=== PATIENT | male | born 1950 | race African-American/Black ===

== ENCOUNTER 2016-12-15 16:36 | Inpatient (IN) ==
--- NOTE | 2016-12-15 16:45 | Emergency Department Note ---
Disposition Clinical Impression: Blood loss anemia GI bleed Qualifiers: GI bleed type/associated pathology: unspecified gastrointestinal hemorrhage type Qualified Code(s): K92.2 - Gastrointestinal hemorrhage, unspecified Disposition: Admitted As Inpatient Condition: Fair GI Bleed HPI - General Chief complaint: ED GI Bleed Stated complaint: GI bleed Time Seen by Provider: 12/15/16 16:37 Source: EMS Limitations: no limitations Nursing Notes Reviewed: Yes Vital Signs Reviewed: Yes - History of Present Illness Pt Subjective Complaint: melena Onset (ago): month(s) (1) Consistency: intermittent, Worsening Severity: mild Improves with: nothing Worsens with: nothing Context: history of GI bleed Associated symptoms: Reports: none - Related Data Home Medications Medication Instructions Recorded Confirmed Albuterol Sulfate [Ventolin Hfa] 2 puff PO Q4H PRN 04/07/16 12/15/16 Amlodipine Besylate 7.5 mg PO DAILY 04/07/16 12/15/16 Budesonide/Formoterol 160/4.5 2 puff IH BIDR 04/07/16 12/15/16 [Symbicort 160/4.5] Divalproex (24 HR) [Depakote ER 1,500 mg PO HS 04/07/16 12/15/16 (24 HR)] Hydrochlorothiazide 25 mg PO DAILY 04/07/16 12/15/16 Prazosin HCl [Minipress] 2 mg PO HS 04/07/16 12/15/16 Ferrous Sulfate [Iron] 325 mg PO BID 08/25/16 12/15/16 Sildenafil Citrate [Viagra] 50 mg PO DAILY PRN 08/25/16 12/15/16 Cholecalciferol (D-3) [Vitamin D] 4,000 unit PO DAILY 12/15/16 12/15/16 DiphenhydraMINE [Benadryl] 50 mg PO HS PRN 12/15/16 12/15/16 Mirtazapine [Remeron] 30 mg PO HS 12/15/16 12/15/16 Multivitamin [Multi-Day Vitamins] 1 each PO DAILY 12/15/16 12/15/16 Sucralfate [Carafate] 1 gm PO QID 12/15/16 12/15/16 Triamcinolone Acet 0.1% CRM 1 appl TP BID PRN 12/15/16 12/15/16 [Kenalog] Previous Rx's Medication Instructions Recorded Pantoprazole Sodium [Protonix] 40 mg PO BID #60 granpkt. 06/29/16 Allergies Allergy/AdvReac Type Severity Reaction Status Date / Time acetaminophen [From Tylenol] Allergy Hives Verified 08/25/16 09:02 atenolol Allergy Gastrointestinal Verified 08/25/16 09:02 Upset bisacodyl Allergy Gastrointestinal Verified 08/25/16 09:02 Upset All systems ED: reviewed and negative except as stated. Constitutional: Reports: weakness. Denies: fever, chills Neurological: Reports: other (dizzy) Past Medical History - Past Medical History Source: patient, old records reviewed, nursing notes reviewed Medical history: Reports: arthritis, GERD, hypertension, other Surgical history: Reports: other Psychiatric history: Reports: depression - Social History Smoking Status: Current every day smoker Smokeless Tobacco Status: No Alcohol use: Reports: rarely Drug use: Reports: none Physical Exam - General Limitations: no limitations General appearance: alert - Head Head exam: atraumatic, normocephalic, normal inspection - Eye Eye exam: Present: normal appearance, PERRL, EOMI - Expanded Eye Exam Pupils: Left: reactive - ENT ENT exam: normal exam, normal oropharynx, mucous membranes moist - Expanded ENT Exam External ear exam: Present: normal external inspection Mouth exam: Present: normal external inspection Teeth exam: Present: normal inspection Throat exam: Present: normal inspection - Neck Neck exam: Present: normal inspection, full ROM, trachea midline - Chest Chest inspection: Present: normal inspection, symmetric chest wall rise - Respiratory Respiratory exam: Present: normal lung sounds bilaterally - Cardiovascular Cardiovascular exam: Present: regular rate, normal rhythm, normal heart sounds - Abdominal Exam Abdominal exam: Present: soft, Non-Tender. Absent: tenderness, distention, guarding, rebound, rigidity - Rectal Exam Geospatial Extractor Analysis present during exam: Yes Rectal exam: Present: normal inspection, heme (+) stool - Extremities Exam Extremities exam: Present: normal inspection, full ROM. Absent: tenderness, pedal edema - Expanded Upper Extremity Exam Shoulder exam: Present: normal inspection, full ROM Arm exam: Present: normal inspection, full ROM Elbow exam: Present: normal inspection, full ROM Forearm/Wrist exam: Present: normal inspection, full ROM Hand exam: Present: normal inspection, full ROM Vascular exam: Normal: capillary refill, radial pulse - Expanded Lower Extremity Exam Hip/Pelvis exam: Present: normal inspection, full ROM Upper leg exam: Present: normal inspection, full ROM Knee exam: Present: normal inspection, full ROM Lower leg exam: Present: normal inspection, full ROM Ankle exam: Present: normal inspection, full ROM Foot/toe exam: Present: normal inspection, full ROM Neurovascular/Tendon exam: Absent: motor deficit, sensory deficit, tendon deficit - Back Exam Back exam: Present: normal inspection, full ROM. Absent: tenderness - Neurological Exam Neurological exam: Present: alert, oriented X3 - Expanded Neurological Exam Patient oriented to: Present: person, place, time Coma Scale Eye Opening: Spontaneous Coma Scale Motor Response: Obeys Commands Coma Scale Verbal Response: Oriented Coma Scale Total: 15 - Psychiatric Psychiatric exam: Present: normal affect, normal mood - Skin Skin exam: Present: warm, dry, intact, normal color Course Vital Signs Temperature 98.3 F 12/15/16 16:37 Pulse Rate 73 12/15/16 16:37 Respiratory Rate 18 12/15/16 16:37 Blood Pressure 157/80 12/15/16 16:37 O2 Sat by Pulse Oximetry 100 12/15/16 16:37 Temperature 98.3 F 12/15/16 16:37 Pulse Rate 73 12/15/16 19:05 Respiratory Rate 18 12/15/16 19:46 Blood Pressure 165/72 12/15/16 19:46 O2 Sat by Pulse Oximetry 97 12/15/16 19:05 Oxygen Delivery Oxygen Delivery Room Air GI Bleed - Differential Diagnosis Likely: hemorrhoids, infectious diarrhea, esophageal varices, gastritis, Upper gastrointestinal hemorrhage, Lower gastrointestinal hemorrhage, melena, anal fissure - Medical Records Medical records reviewed: Yes I reviewed the patient's medical records. - Lab Data Lab results reviewed: Yes I reviewed the patient's lab results. Result diagrams: 12/15/16 17:29 12/15/16 17:29 Lab Results 12/15/16 12/15/16 12/15/16 Range/Units 14:30 17:29 17:29 WBC 7.1 (4.3-11.1) K/mcL RBC 2.71 L (4.19-5.50) M/mcL Hgb 8.5 L (12.9-16.9) g/dL Hct 26.4 L (37.5-50.1) % MCV 97.4 (83.0-100.0) fL MCH 31.4 (28.0-33.3) pg MCHC 32.2 (31.6-35.5) g/dL RDW 15.7 H (11.5-14.5) % Plt Count 426 H (140-400) K/mcL MPV 10.5 (9.4-12.4) fL Immature Gran % 0.6 (0-4) % Seg Neutrophils % 54.5 % Lymphocytes % 31.0 % Monocytes % 11.5 % Eosinophils % 1.8 % Basophils % 0.6 % Neutrophils # 3.9 (1.6-8.9) K/mcL Lymphocytes # 2.2 (0.6-4.6) K/mcL Monocytes # 0.8 (0.0-1.3) K/mcL Eosinophils # 0.1 (0.0-0.6) K/mcL Basophils # 0.0 (0.0-0.2) K/mcL PT 12.2 H (9.4-12.1) Seconds INR 1.1 APTT 28.3 (26.0-36.0) Seconds Sodium (136-145) mEq/L Potassium (3.5-4.5) mEq/L Chloride (98-109) mEq/L Carbon Dioxide (19-29) mEq/L BUN (8-26) mg/dL Creatinine (0.72-1.25) mg/dL Est GFR ( Amer) (> 60) Est GFR (Non-Af Amer) (> 60) BUN/Creatinine Ratio (6-26) Glucose (70-99) mg/dL Calculated Osmolality (280-300) Calcium (8.6-10.8) mg/dL Magnesium (1.6-2.6) mg/dL Stool Occult Blood Positive A (Negative) Blood Type Antibody Screen 12/15/16 12/15/16 Range/Units 17:29 17:29 WBC (4.3-11.1) K/mcL RBC (4.19-5.50) M/mcL Hgb (12.9-16.9) g/dL Hct (37.5-50.1) % MCV (83.0-100.0) fL MCH (28.0-33.3) pg MCHC (31.6-35.5) g/dL RDW (11.5-14.5) % Plt Count (140-400) K/mcL MPV (9.4-12.4) fL Immature Gran % (0-4) % Seg Neutrophils % % Lymphocytes % % Monocytes % % Eosinophils % % Basophils % % Neutrophils # (1.6-8.9) K/mcL Lymphocytes # (0.6-4.6) K/mcL Monocytes # (0.0-1.3) K/mcL Eosinophils # (0.0-0.6) K/mcL Basophils # (0.0-0.2) K/mcL PT (9.4-12.1) Seconds INR APTT (26.0-36.0) Seconds Sodium 141 (136-145) mEq/L Potassium 3.9 (3.5-4.5) mEq/L Chloride 111 H (98-109) mEq/L Carbon Dioxide 20 (19-29) mEq/L BUN 20 (8-26) mg/dL Creatinine 1.16 (0.72-1.25) mg/dL Est GFR ( Amer) > 60 (> 60) Est GFR (Non-Af Amer) > 60 (> 60) BUN/Creatinine Ratio 17 (6-26) Glucose 98 (70-99) mg/dL Calculated Osmolality 295 (280-300) Calcium 9.1 (8.6-10.8) mg/dL Magnesium 1.8 (1.6-2.6) mg/dL Stool Occult Blood (Negative) Blood Type O POSITIVE Antibody Screen POSITIVE - Radiology Data Radiology results reviewed: Yes I reviewed the patient's radiology results.
[2016-12-15] MEDS ORDERED: 0.9 % Sodium Chloride 1,000 ML IVC ONE (17:07)
[2016-12-15 17:41] LABS: Basophils % 0.6 %; Eosinophils # 0.1 K/mcL (0.0-0.6); Eosinophils % 1.8 %; Hematocrit 26.4 % (37.5-50.1); Hemoglobin 8.5 g/dL (12.9-16.9); Immature Granulocytes % 0.6 % (0-4); Lymphocytes # 2.2 K/mcL (0.6-4.6); Mean Corpuscular HGB Conc 32.2 g/dL (31.6-35.5); Mean Corpuscular Hemoglobin 31.4 pg (28.0-33.3); Mean Corpuscular Volume 97.4 fL (83.0-100.0); Mean Platelet Volume 10.5 fL (9.4-12.4); Monocytes # 0.8 K/mcL (0.0-1.3); Monocytes % 11.5 %; Neutrophils # 3.9 K/mcL (1.6-8.9); Platelet Count 426 K/mcL (140-400); Red Blood Count 2.71 M/mcL (4.19-5.50); Red Cell Distribution Width 15.7 % (11.5-14.5); Segmented Neutrophils % 54.5 %
[2016-12-15 17:47] LABS: INR 1.1; Prothrombin Time 12.2 Seconds (9.4-12.1)
[2016-12-15 17:49] LABS: Activated Partial Thrombo Time 28.3 Seconds (26.0-36.0)
[2016-12-15 17:55] LABS: BUN/Creatinine Ratio 17 (6-26); Blood Urea Nitrogen 20 mg/dL (8-26); Calcium 9.1 mg/dL (8.6-10.8); Carbon Dioxide 20 mEq/L (19-29); Chloride 111 mEq/L (98-109); Glucose 98 mg/dL (70-99); Magnesium 1.8 mg/dL (1.6-2.6); Osmolality,Calculated 295 (280-300); Potassium 3.9 mEq/L (3.5-4.5); Sodium 141 mEq/L (136-145); eGFR For African Americans > 60 (> 60); eGFR For Non-African Americans > 60 (> 60)
[2016-12-15] MEDS ORDERED: Pantoprazole 40 MG VIAL IVP ONE (18:19)
[2016-12-15] MEDS ORDERED: Triamcinolone Acet 0.1% CRM 15 GM TUBE TP PRN (22:14)
[2016-12-15] MEDS ORDERED: Naloxone 0.4 MG/ML INJ IVP PRN (22:18)
[2016-12-15] MEDS ORDERED: Furosemide 20 MG/2 ML VIAL IVP ONE (22:23)
--- NOTE | 2016-12-15 22:36 | Internal Med History&Physical ---
Date of Encounter: 12/15/16 Time of Encounter: 21:40 Assessment and Plan (1) Blood loss anemia Current visit: Yes Status: Acute Possibly secondary to GI / upper GI source of bleeding. Patient is significantly symptomatic with shortness of breath and dizziness. We will transfuse him 2 units of PRBC. Monitor orthostatic vitals and hemoglobin. GI consultation in the morning for further advice and workup (2) GI bleed Current visit: Yes Status: Acute Possible upper GI bleeding. Start pantoprazole 40 IV Q12H. NPO after midninight for possible endoscopy. GI consultation in the morning. Qualifiers: GI bleed type/associated pathology: melena Qualified Code(s): K92.1 - Melena (3) Hypertension Current visit: Yes Status: Chronic Monitor orthostatic vitals. Continue amlodipine. Qualifiers: Hypertension type: essential hypertension Qualified Code(s): I10 - Essential (primary) hypertension (4) Lung nodule Current visit: Yes Status: Chronic Stable. Follows with embedded developer (5) Shortness of breath on exertion Current visit: Yes Status: Acute Possibly due to Anemia / GI blood loss. Will transfuse 2 units of PRBC. Will obtain CXR (6) COPD (chronic obstructive pulmonary disease) Current visit: Yes Status: Chronic stable. continue home meds Qualifiers: COPD type: unspecified COPD Qualified Code(s): J44.9 - Chronic obstructive pulmonary disease, unspecified (7) Tobacco abuse Current visit: Yes Status: Chronic Patient admits to smoking 5 cigarettes a day. Offered nicotine patch - pt declined (8) DVT prophylaxis Current visit: Yes Status: Acute SCDs Internal Medicine - H&P: HPI Chief complaint: Melena Admitted From: Emergency Dept Plans for Post Hospital Care: Home History of present illness: Mr. Hartley is a 66 year old male with past medical history significant for GI bleed with a negative colonoscopy in June 2016 and EGD showing inflammation of the duodenal bulb. He apparently had capsule endoscopy about 2 months ago in the [place] (requested report from [place], and is not available at this time). He has history of right lower lobe pulmonary nodule and right hilar adenopathy which was worked up by embedded developer and is being monitored. He also has history of COPD, GERD, hypertension, depression, thyroid nodules and PTSD. He presented to the urgent care at the [place], with one-month history of black stools, and recently noticed blood in the bowel movement. He denies hematemesis. He reports progressive dyspnea on exertion and decreased effort tolerance. He reports feeling dizzy this morning, when he was trying to stand up. Denies syncope/falls. He reports fatigue and excessive sleeping. Denies chest pain. Reports mild left-sided abdominal pain. Denies dysuria, hematuria, hemoptysis or excessive bruising. He denies fever, chills, nausea, vomiting. He was evaluated in urgent care at [place] - I have reviewed her available lab results from the [place]. His Hemoglobin was 13.4 on 11/23/2016 and was 8.8 today. He was sent to the emergency department at [facility]. Hemoglobin was 8.5 and INR was 1.1. Fecal occult blood was positive. He is admitted to the hospitalist service for further workup and management. Past Med Surg Social Fam HX - Past Medical History Medical history: arthritis, GERD, hypertension, other Psychiatric history: depression - Past Surgical History Surgical History: other - Social History Smoking Status: Current every day smoker Packs per day: 1 per week Smokeless Tobacco Status: No Alcohol use: rarely Drug use: none - Family History Sister Adopted: No Living Status: Still Living Internal Medicine - H&P: Meds Albuterol Sulfate [Ventolin Hfa] 2 puff PO Q4H PRN 04/07/16 [History] Amlodipine Besylate 7.5 mg PO DAILY 04/07/16 [History] Budesonide/Formoterol 160/4.5 [Symbicort 160/4.5] 2 puff IH BIDR 04/07/16 [ History] Divalproex (24 HR) [Depakote ER (24 HR)] 1,500 mg PO HS 04/07/16 [History] Hydrochlorothiazide 25 mg PO DAILY 04/07/16 [History] Prazosin HCl [Minipress] 2 mg PO HS 04/07/16 [History] Pantoprazole Sodium [Protonix] 40 mg PO BID #60 morenapkt 06/29/16 [Rx] Ferrous Sulfate [Iron] 325 mg PO BID 08/25/16 [History] Sildenafil Citrate [Viagra] 50 mg PO DAILY PRN 08/25/16 [History] Cholecalciferol (D-3) [Vitamin D] 4,000 unit PO DAILY 12/15/16 [History] DiphenhydraMINE [Benadryl] 50 mg PO HS PRN 12/15/16 [History] Mirtazapine [Remeron] 30 mg PO HS 12/15/16 [History] Multivitamin [Multi-Day Vitamins] 1 each PO DAILY 12/15/16 [History] Sucralfate [Carafate] 1 gm PO QID 12/15/16 [History] Triamcinolone Acet 0.1% CRM [Kenalog] 1 appl TP BID PRN 12/15/16 [History] Allergies acetaminophen [From Tylenol] Allergy (Verified 08/25/16 09:02) Hives atenolol Allergy (Verified 08/25/16 09:02) Gastrointestinal Upset bisacodyl Allergy (Verified 08/25/16 09:02) Gastrointestinal Upset All Systems PM: A 10-system review of systems was performed and is negative for pertinent findings except as documented above in the HPI. - Constitutional Vitals: Temp Pulse Resp BP Pulse Ox 98.6 F 72 20 144/82 100 12/15/16 20:33 12/15/16 20:33 12/15/16 20:33 12/15/16 20:33 12/15/16 20:33 Exam: General: Not in acute distress at the time of my evaluation HEENT: Oral mucosa is moist. conjunctival palor present. No scleral icterus Neck: No obvious neck swellings Lungs: Few bilateral basal crackles Cardiac: Regular rate and rhythm. Systolic murmur present Abdomen: Soft. Mild left upper quadrant tenderness. Bowel sounds present Genitourinary: No jarquin catheter Neurological: Alert and oriented. No gross localizing deficits Psych: Not aggressive or agitated Extremities: no significant leg edema Skin: No generalized rash Internal Med - H&P Results - Labs CBC & Chem 7: 12/15/16 17:29 12/15/16 17:29 - EKG Data -: EKG Interpreted by Myself EKG shows normal: sinus rhythm Rate: normal - EKG Data EKG comments: HUNG 12/15/16 22:38
[2016-12-15] MEDS: Divalproex (24 HR) 500 MG TABLET PO SCH (23:07)
[2016-12-15] MEDS: Pantoprazole 40 MG VIAL IVP SCH (23:08)
[2016-12-15] MEDS: Mirtazapine 15 MG TABLET PO SCH (23:33)
[2016-12-16] MEDS ORDERED: 0.9 % Sodium Chloride Mini Bag 100 ML ONE (00:28)
[2016-12-16] MEDS: Pantoprazole 40 MG VIAL IVP SCH ×2 (05:48→18:19)
[2016-12-16 06:10] LABS: Hematocrit 26.8 % (37.5-50.1); Hemoglobin 8.8 g/dL (12.9-16.9); Mean Corpuscular HGB Conc 32.8 g/dL (31.6-35.5); Mean Corpuscular Hemoglobin 31.4 pg (28.0-33.3); Mean Corpuscular Volume 95.7 fL (83.0-100.0); Mean Platelet Volume 10.8 fL (9.4-12.4); Platelet Count 389 K/mcL (140-400); Red Cell Distribution Width 15.2 % (11.5-14.5)
[2016-12-16 06:20] LABS: % Iron Saturation 7 % (20-55); BUN/Creatinine Ratio 14 (6-26); Blood Urea Nitrogen 16 mg/dL (8-26); Calcium 8.7 mg/dL (8.6-10.8); Carbon Dioxide 23 mEq/L (19-29); Chloride 112 mEq/L (98-109); Glucose 122 mg/dL (70-99); Iron 27 mcg/dL (65-175); Osmolality,Calculated 296 (280-300); Potassium 3.8 mEq/L (3.5-4.5); Sodium 142 mEq/L (136-145); Transferrin 261 mg/dL (174-364); eGFR For African Americans > 60 (> 60); eGFR For Non-African Americans > 60 (> 60)
[2016-12-16] MEDS: Budesonide/Formoterol 160/4.5 MDI IH SCH ×2 (07:42→21:12)
[2016-12-16] MEDS: amLODIPine 5 MG TABLET PO SCH (09:49)
[2016-12-16] MEDS: Multivit/Ca/Min/Fe/FA 1 TAB TABLET PO SCH (09:49)
[2016-12-16] MEDS: Sucralfate 1 GM TABLET PO SCH ×4 (09:51→20:48)
[2016-12-16] MEDS: Cholecalciferol (D-3) 1,000 UNIT TABLET PO SCH (09:54)
--- NOTE | 2016-12-16 11:00 | Internal Med Progress Note ---
Date of Encounter: 12/16/16 Time of Encounter: 10:58 - Assessment and plan (1) Blood loss anemia Current Visit: Yes Status: Acute Assessment and plan: patient received 1unit PRBC overnight. he is to receive one unit today will monitor H&H no reported BM or bleeds since admission will continue to closely monitor (2) GI bleed Current Visit: Yes Status: Acute Assessment and plan: GI eval requested with Dr. Brando Michaels to take the patient for EGD today continue PPI BID NPO until after EGD and will resume diet as per GI eval Qualifiers: GI bleed type/associated pathology: melena Qualified Code(s): K92.1 - Melena (3) DVT prophylaxis Current Visit: Yes Status: Acute Assessment and plan: IPCD (4) COPD (chronic obstructive pulmonary disease) Current Visit: Yes Status: Chronic Assessment and plan: not in acute exacerbation bronchodilator support as needed monitor O2 sat O2 supplementation as needed Qualifiers: COPD type: unspecified COPD Qualified Code(s): J44.9 - Chronic obstructive pulmonary disease, unspecified (5) Hypertension Current Visit: Yes Status: Chronic Assessment and plan: BP within acceptable range continue home medications Qualifiers: Hypertension type: essential hypertension Qualified Code(s): I10 - Essential (primary) hypertension (6) Tobacco abuse Current Visit: Yes Status: Chronic Assessment and plan: smoking cessation counseling provided patient reports of trying to cut down refused nicotine replacement therapy - Subjective Interval history: Pt seen and examined at bedside. Reports of have GI bleeds/melena for the last year and has had multiple hospitalizations for it. States he feels weak and tired at all times. REports of recently having a capsule endoscopy at the [place] and has been lost in follow up. - Constitutional Vitals: Temp Pulse Resp BP Pulse Ox 98.6 F 81 16 130/65 98 12/16/16 07:00 12/16/16 07:00 12/16/16 07:00 12/16/16 07:00 12/16/16 07:00 General appearance: Present: A&O X 3, no acute distress, answers questions appropriately - Head Head exam: Present: atraumatic, normocephalic - Eye Eye exam: Present: normal appearance, conjuntiva pink, sclera anicteric - Respiratory Respiratory exam: Present: CTAB. Absent: respiratory distress, wheezes - Cardiovascular Cardiovascular exam: Present: RRR, +S1, +S2 - Extremities Exam Extremities exam: Present: warm, radial pulses palpable and symetrical. Absent : calf tenderness, pedal edema - Neurological Exam Neurological exam: Present: alert, oriented X3 - Psychiatric Psychiatric exam: Present: normal affect, normal mood Internal Medicine: Result - Labs CBC & Chem 7: 12/16/16 05:14 12/16/16 05:14 Labs: Short CBC 12/16/16 Range/Units 05:14 WBC 5.2 (4.3-11.1) K/mcL Hgb 8.8 L (12.9-16.9) g/dL Hct 26.8 L (37.5-50.1) % Plt Count 389 (140-400) K/mcL BMP 12/16/16 05:14 Sodium 142 Potassium 3.8 Chloride 112 H Carbon Dioxide 23 BUN 16 Creatinine 1.17 Glucose 122 H Calcium 8.7 - ABG Interpretation ABG results: PT/INR, D-dimer PT 12.2 Seconds (9.4-12.1) H 12/15/16 17:29 Consult Discharge Plan - Plan Referrals: [facility] [Outside]
[2016-12-16] MEDS ORDERED: 0.9 % Sodium Chloride 250 ML ONE (11:47)
--- NOTE | 2016-12-16 13:02 | Gastroenterology Consult Note ---
<Henry Sal - Last Filed: 12/16/16 13:00> Date of Encounter: 12/16/16 Time of Encounter: 11:00 - Assessment and plan (1) GI bleed Current Visit: Yes Status: Acute Assessment and plan: Pt with melena for over 1 year. Plan for EGD today to r/o esophagitis, gastritis , duodenitis, PUD, MW tear, or AVM. Pt states he had a capsule endoscopy at [place], but has been lost to follow up. Qualifiers: GI bleed type/associated pathology: melena Qualified Code(s): K92.1 - Melena (2) Blood loss anemia Current Visit: Yes Status: Acute Assessment and plan: Secondary to GI bleed. Continue to monitor CBC and transfuse PRBC as needed. (3) COPD (chronic obstructive pulmonary disease) Current Visit: Yes Status: Chronic Qualifiers: COPD type: unspecified COPD Qualified Code(s): J44.9 - Chronic obstructive pulmonary disease, unspecified - Time Spent With Patient Total time spent is greater than 50% in coordination of care (as documented) at patient's floor/unit and/or counseling patient: GI History of Present Illness - Data of Consult Patient: new to practice Consult date: 12/16/16 Requesting Physician: Nidia Hartmann MD - Consult Narrative Reason for consult: anemia History of present illness: Mr. Hartley is a 66 year old male with PMHx of arthritis, COPD, PTSD, GERD, HTN, and history of GI bleed with negative colonoscopy June 2016 and EGD with inflammation of duodenal bulb. Pt reports capsule endoscopy 2 months ago at the [place]. He states there has been no follow up with the [place] from his GI bleed. He complains of bleeding for the past 18 months, but states his melena has worsened has worsened over the past month. He also reports ocassional BRBPR, weakness, and fatigue. He denies chest pain, fever, chills, nausea, or vomiting. Hgb 13.4 on 11/23/16 and 8.8 this AM. FOBT positive on admission. Procedures: 06/2016 EGD inflammation of duodenal bulb 06/2016 Colonoscopy negative per pt report. Capsule endoscopy 2 months ago NSAIDs: None Anticoagulation: None Past Med Surg Social Fam HX - Past Medical History Medical history: arthritis, GERD, hypertension, other Psychiatric history: depression - Past Surgical History Surgical History: other - Social History Smoking Status: Current every day smoker Packs per day: 1 per week Smokeless Tobacco Status: No Alcohol use: rarely Drug use: none - Family History Sister Adopted: No Living Status: Still Living - Gastrointestinal Gastrointestinal: Present: as per HPI - Constitutional Constitutional: as per HPI - EENT Eyes: as per HPI Ears: Present: as per HPI Nose, mouth and throat: Present: as per HPI - Cardiovascular Cardiovascular ROS: Present: as per HPI - Respiratory Respiratory IM: Present: as per HPI - Genitourinary Genitourinary: Absent: change in color, Urinary frequency - Neurological ROS Neurological GI: Present: as per HPI - Hematologic/Lymphatic Hematologic/Lymphatic pediatric: Present: as per HPI - Musculoskeletal Musculoskeletal ROS GI: Present: as per HPI - Integumentary Integumentary GI: Present: as per HPI - Psychiatric ROS Psychiatric GI: Present: as per HPI - Endocrine Endocrine IM: Present: as per HPI - Constitutional Vitals: Temp Pulse Resp BP Pulse Ox 98.1 F 96 17 135/81 98 12/16/16 12:23 12/16/16 12:23 12/16/16 12:23 12/16/16 12:23 12/16/16 12:08 General appearance: Present: cooperative, A&O X 3, no acute distress, answers questions appropriately - Head Head exam: Present: atraumatic, normocephalic - Eye Eye exam: Present: normal appearance, sclera anicteric - ENT ENT exam: Present: mucous membranes dry - Neck Neck exam general surgery: Present: normal inspection, trachea midline - Respiratory Respiratory exam: Present: decreased breath sounds, CTAB - Cardiovascular Cardiovascular exam: Present: RRR, +S1, +S2 - GI/Abdominal GI/Abdominal exam: Present: soft, tenderness (Mild lower abdominal tenderness to palpation), no peritoneal signs. Absent: distended, firm, guarding - Rectal Rectal exam: Present: deferred - Extremities Exam Extremities exam: Present: warm - Neurological Exam Neurological exam: Present: no focal deficits - Psychiatric Psychiatric exam: Present: normal affect, normal mood - Skin Skin exam: Present: dry, intact, normal color, warm Results - Labs CBC & Chem 7: 12/16/16 05:14 12/16/16 05:14 Labs: Last Result Calcium 8.7 mg/dL (8.6-10.8) 12/16/16 05:14 Iron 27 mcg/dL (65-175) L 12/16/16 05:14 % Saturation 7 % (20-55) L 12/16/16 05:14 Transferrin 261 mg/dL (174-364) 12/16/16 05:14 Stool Occult Blood Positive (Negative) A 12/15/16 14:30 Entire Visit Hgb 8.8 g/dL (12.9-16.9) L 12/16/16 05:14 Hct 26.8 % (37.5-50.1) L 12/16/16 05:14 PT 12.2 Seconds (9.4-12.1) H 12/15/16 17:29 - ABG ABG results: PT/INR, D-dimer PT 12.2 Seconds (9.4-12.1) H 12/15/16 17:29 Consult Discharge Plan - Plan Referrals: [facility] [Outside] <Maximo Michaels - Last Filed: 12/16/16 18:27> Time of Encounter: 18:00 - Time Spent With Patient Total time spent is greater than 50% in coordination of care (as documented) at patient's floor/unit and/or counseling patient: GI History of Present Illness - Data of Consult Requesting Physician: Nidia Hartmann MD - Consult Narrative History of present illness: Mr. Hartley is a 66 year old male - Constitutional Vitals: Temp Pulse Resp BP Pulse Ox 98.3 F 71 16 183/67 99 12/16/16 16:59 12/16/16 17:48 12/16/16 17:48 12/16/16 17:48 12/16/16 17:48 Results - Labs CBC & Chem 7: 12/16/16 05:14 12/16/16 05:14 Labs: Last Result Calcium 8.7 mg/dL (8.6-10.8) 12/16/16 05:14 Iron 27 mcg/dL (65-175) L 12/16/16 05:14 % Saturation 7 % (20-55) L 12/16/16 05:14 Transferrin 261 mg/dL (174-364) 12/16/16 05:14 Stool Occult Blood Positive (Negative) A 12/15/16 14:30 Entire Visit Hgb 8.8 g/dL (12.9-16.9) L 12/16/16 05:14 Hct 26.8 % (37.5-50.1) L 12/16/16 05:14 PT 12.2 Seconds (9.4-12.1) H 12/15/16 17:29 - ABG ABG results: PT/INR, D-dimer PT 12.2 Seconds (9.4-12.1) H 12/15/16 17:29
--- NOTE | 2016-12-16 14:55 | Electrocardiograph Report ---
[place] [id number] Test Date: 2016-12-15 Pat Name: Hayder Hartley Department: 115 Room: 3A Gender: M Ac/Dc Rewinder: : 1950 Requested By: Nidia Hartmann Order Number: [id number] Reading MD: Cat Pablo Measurements Intervals [place] Rate: 74 P: 53 NV: 123 QRS: 60 QRSD: 133 T: 56 QT: 405 QTc: 432 Interpretive Statements SINUS RHYTHM WITH SINUS ARRHYTHMIA RIGHT BUNDLE BRANCH BLOCK Electronically Signed On 12-16-2016 14:53:54 EST by Cat Pablo
[2016-12-16] MEDS ORDERED: *HR* FentaNYL (PF) 100 MCG/2 ML VIAL ONE ×2 (16:49→17:38)
[2016-12-16] MEDS ORDERED: *HR* Midazolam HCl 5 MG/5 ML VIAL IVP ONE ×2 (16:50→17:37)
[2016-12-16] MEDS ORDERED: 0.9 % Sodium Chloride 1,000 ML IVC SCH (17:15)
[2016-12-16] MEDS ORDERED: Tetracaine/Benzocaine/Butamben 200MG/SPRAY (100SPY/BOT) MM ONE (17:26)
[2016-12-16] MEDS ORDERED: Simethicone 40 MG/0.6 ML MLS IR ONE (17:26)
--- NOTE | 2016-12-16 17:26 | Pre-Sedation Evaluation ---
Pre-sedation evaluation - Pre-sedation checklist Date of procedure: 12/16/16 Procedure: EGD Recent Vitals: Last Vital Signs Temp 98.3 F 12/16/16 16:59 Pulse 67 12/16/16 16:59 Resp 16 12/16/16 16:59 BP 130/72 12/16/16 16:59 Pulse Ox 97 12/16/16 16:59 H&P (including ROS) documented in medical record: Yes Previous reaction to sedatives/anesthetics: No Dietary Status: NPO after Midnight Dentition: dentures removed ASA Classification *see protocol: CLASS III-Severe systemic disease Plan of Care: Pt appropriate candidate for procedure/moderate/conscious sedation , Risks/benefits of procedure/sedation discussed w/ patient/family
[2016-12-16] MEDS: *HR* Midazolam HCl 5 MG/5 ML VIAL IVP PRN ×4 (17:28→17:44)
[2016-12-16] MEDS: *HR* FentaNYL (PF) 100 MCG/2 ML VIAL IVP PRN ×3 (17:28→17:44)
[2016-12-16] MEDS: Mirtazapine 15 MG TABLET PO SCH (20:48)
[2016-12-16] MEDS: Divalproex (24 HR) 500 MG TABLET PO SCH (20:49)
[2016-12-17] MEDS: traMADol 50 MG TABLET PO PRN ×2 (00:50→18:25)
[2016-12-17 04:42] LABS: Basophils % 0.4 %; Eosinophils # 0.2 K/mcL (0.0-0.6); Eosinophils % 3.7 %; Hematocrit 27.7 % (37.5-50.1); Hemoglobin 9.1 g/dL (12.9-16.9); Immature Granulocytes % 0.4 % (0-4); Lymphocytes # 1.5 K/mcL (0.6-4.6); Lymphocytes % 29.3 %; Mean Corpuscular HGB Conc 32.9 g/dL (31.6-35.5); Mean Corpuscular Hemoglobin 31.1 pg (28.0-33.3); Mean Corpuscular Volume 94.5 fL (83.0-100.0); Mean Platelet Volume 10.5 fL (9.4-12.4); Monocytes # 0.6 K/mcL (0.0-1.3); Monocytes % 12.5 %; Neutrophils # 2.8 K/mcL (1.6-8.9); Platelet Count 357 K/mcL (140-400); Red Blood Count 2.93 M/mcL (4.19-5.50); Segmented Neutrophils % 53.7 %
[2016-12-17 04:53] LABS: BUN/Creatinine Ratio 13 (6-26); Blood Urea Nitrogen 13 mg/dL (8-26); Calcium 8.9 mg/dL (8.6-10.8); Carbon Dioxide 22 mEq/L (19-29); Chloride 112 mEq/L (98-109); Glucose 135 mg/dL (70-99); Magnesium 1.5 mg/dL (1.6-2.6); Osmolality,Calculated 296 (280-300); Phosphorous 4.3 mg/dL (2.3-4.7); Potassium 3.7 mEq/L (3.5-4.5); Sodium 142 mEq/L (136-145); eGFR For African Americans > 60 (> 60); eGFR For Non-African Americans > 60 (> 60)
[2016-12-17] MEDS: Pantoprazole 40 MG VIAL IVP SCH ×2 (06:19→18:00)
[2016-12-17] MEDS ORDERED: Magnesium Sulfate 1 GM in D5% in Water 100 ML IVPB ONE (08:15)
[2016-12-17] MEDS: Budesonide/Formoterol 160/4.5 MDI IH SCH ×2 (08:22→20:18)
[2016-12-17] MEDS: amLODIPine 5 MG TABLET PO SCH (09:30)
[2016-12-17] MEDS: Sucralfate 1 GM TABLET PO SCH ×4 (09:30→21:23)
[2016-12-17] MEDS: Cholecalciferol (D-3) 1,000 UNIT TABLET PO SCH (09:31)
[2016-12-17] MEDS: Multivit/Ca/Min/Fe/FA 1 TAB TABLET PO SCH (09:31)
--- NOTE | 2016-12-17 12:14 | Internal Med Progress Note ---
Date of Encounter: 12/17/16 Time of Encounter: 12:13 - Assessment and plan (1) Blood loss anemia Current Visit: Yes Status: Acute Assessment and plan: Repeat H&H within acceptable range No active bleeding noted at this time Will continue to monitor (2) GI bleed Current Visit: Yes Status: Acute Assessment and plan: GI eval requested with Dr. Michaels s/p EGD: nonbleeding duodenal ulcer restarted PO diet will monitor another day likely d/c in am Qualifiers: GI bleed type/associated pathology: melena Qualified Code(s): K92.1 - Melena (3) DVT prophylaxis Current Visit: Yes Status: Acute Assessment and plan: IPCD (4) COPD (chronic obstructive pulmonary disease) Current Visit: Yes Status: Chronic Assessment and plan: not in acute exacerbation bronchodilator support as needed monitor O2 sat O2 supplementation as needed Qualifiers: COPD type: unspecified COPD Qualified Code(s): J44.9 - Chronic obstructive pulmonary disease, unspecified (5) Hypertension Current Visit: Yes Status: Chronic Assessment and plan: BP within acceptable range continue home medications Qualifiers: Hypertension type: essential hypertension Qualified Code(s): I10 - Essential (primary) hypertension (6) Tobacco abuse Current Visit: Yes Status: Chronic Assessment and plan: smoking cessation counseling provided patient reports of trying to cut down refused nicotine replacement therapy (7) Depression Current Visit: Yes Status: Acute Assessment and plan: chronic history Psych eval requested Qualifiers: Depression Type: unspecified Qualified Code(s): F32.9 - Major depressive disorder, single episode, unspecified - Subjective Interval history: Pt seen and examined at bedside. s/p EGD yesterday (12/16/16). NO reported episodes of bleeding since then. Reports of being depressed and states he feels hopeless and is chronically depressed. States he used to have a psychiatrist and has been lost in follow up. - Constitutional Vitals: Temp Pulse Resp BP Pulse Ox 98.5 F 74 16 149/78 96 12/17/16 11:32 12/17/16 11:32 12/17/16 11:51 12/17/16 11:32 12/17/16 11:51 General appearance: Present: A&O X 3, no acute distress, answers questions appropriately - Head Head exam: Present: atraumatic, normocephalic - Eye Eye exam: Present: normal appearance, conjuntiva pink, sclera anicteric - Respiratory Respiratory exam: Present: CTAB. Absent: respiratory distress, wheezes - Cardiovascular Cardiovascular exam: Present: RRR, +S1, +S2 - GI/Abdominal GI/Abdominal exam: Present: normal bowel sounds, soft. Absent: distended, tenderness - Extremities Exam Extremities exam: Present: warm, radial pulses palpable and symetrical. Absent : calf tenderness, pedal edema, tenderness - Neurological Exam Neurological exam: Present: alert, oriented X3 - Psychiatric Psychiatric exam: Present: depressed. Absent: suicidal ideation Internal Medicine: Result - Labs CBC & Chem 7: 12/17/16 04:22 12/17/16 04:22 Labs: Short CBC 12/17/16 Range/Units 04:22 WBC 5.1 (4.3-11.1) K/mcL Hgb 9.1 L (12.9-16.9) g/dL Hct 27.7 L (37.5-50.1) % Plt Count 357 (140-400) K/mcL Neutrophils # 2.8 (1.6-8.9) K/mcL BMP 12/17/16 04:22 Sodium 142 Potassium 3.7 Chloride 112 H Carbon Dioxide 22 BUN 13 Creatinine 1.00 Glucose 135 H Calcium 8.9 - ABG Interpretation ABG results: PT/INR, D-dimer PT 12.2 Seconds (9.4-12.1) H 12/15/16 17:29 - VTE Documentation of Mechanical Device: Intermittent pneumatic compression device Consult Discharge Plan - Plan Referrals: [facility] [Outside] - 12/31/16 2:30 pm (First appt. available at the [place] for the hospital follow up.)
--- NOTE | 2016-12-17 15:23 | Consult Note ---
Date of Encounter: 12/17/16 Time of Encounter: 14:30 Assessment & Recommendation (1) Major depression, recurrent, chronic Current visit: Yes Status: Acute Assessment & Recommendation: Recommend that patient continue on his psychiatric care at the [facility] with his psychiatrist and psychologist recommended that he make appointments and continue on his medication as prescribed. Patient is not acutely suicidal and psychiatric care can be accomplished as outpatient as discussed with the patient. Thank you for consult (2) Cocaine abuse in remission Current visit: No Status: Resolved History of Present Illness Patient: new to practice Requesting Physician: Nidia Hartmann MD Reason for consult: depression,suicidal ideation History of present illness: Mr. Hartley is a 66 year old male admitted to the hospital was diagnosis of GI bleeds. Psychiatric consultation was requested to evaluate depression and possible suicidal ideation. The referring physician indicated the patient is a and had been treated in the [facility] for depression and voiced some symptoms of depression. On interview patient tells me that he was hospitalized several times in the [facility] for depression he also had a history of drug and substance abuse including cocaine and narcotics he tell me that he has been sober for 13 years and he was regularly seeing psychiatrists and psychologists at the [facility]. He has not had appointments for couple months because of transportation problems. Review of the records sure that patient is receiving mirtazapine and Depakote as psychiatric treatment medication. Patient denied any suicidal ideation he is frustrated by his repeated admission for GI bleed and he is concerned about his inability to attend appointments due to transportation problems. He was seen by social work and was assured that transportation can be arranged. Patient lives alone and his children are living away from him. CC: Nidia Hartmann MD Past Med Surg Social Fam HX - Past Medical History Medical history: arthritis, GERD, hypertension, other - Past Psychiatric History Psychiatric history: Reports: depression, previous psychiatric hospitalization, other (drug dependence, cocaine in remission.) Past psychiatric history details: Hospitalized at the [facility] several times and he is followed by psychiatrists and psychologists as an outpatient and he is on psychotropic medication including mirtazapine and Depakote. Family psychiatric history: Unknown Family History of Suicide: Unknown - Past Surgical History Surgical History: other - Social History Smoking Status: Current every day smoker Smokeless Tobacco Status: No Alcohol use: rarely Drug use: none - Family History Sister Adopted: No Living Status: Still Living Medications & Allergies Albuterol Sulfate [Ventolin Hfa] 2 puff PO Q4H PRN 04/07/16 [History] Amlodipine Besylate 7.5 mg PO DAILY 04/07/16 [History] Budesonide/Formoterol 160/4.5 [Symbicort 160/4.5] 2 puff IH BIDR 04/07/16 [ History] Divalproex (24 HR) [Depakote ER (24 HR)] 1,500 mg PO HS 04/07/16 [History] Hydrochlorothiazide 25 mg PO DAILY 04/07/16 [History] Prazosin HCl [Minipress] 2 mg PO HS 04/07/16 [History] Pantoprazole Sodium [Protonix] 40 mg PO BID #60 connerkt 06/29/16 [Rx] Ferrous Sulfate [Iron] 325 mg PO BID 08/25/16 [History] Sildenafil Citrate [Viagra] 50 mg PO DAILY PRN 08/25/16 [History] Cholecalciferol (D-3) [Vitamin D] 4,000 unit PO DAILY 12/15/16 [History] DiphenhydraMINE [Benadryl] 50 mg PO HS PRN 12/15/16 [History] Mirtazapine [Remeron] 30 mg PO HS 12/15/16 [History] Multivitamin [Multi-Day Vitamins] 1 each PO DAILY 12/15/16 [History] Sucralfate [Carafate] 1 gm PO QID 12/15/16 [History] Triamcinolone Acet 0.1% CRM [Kenalog] 1 appl TP BID PRN 12/15/16 [History] Allergies acetaminophen [From Tylenol] Allergy (Verified 08/25/16 09:02) Hives atenolol Allergy (Verified 08/25/16 09:02) Gastrointestinal Upset bisacodyl Allergy (Verified 08/25/16 09:02) Gastrointestinal Upset Review of Systems Psychiatric: Reports: depression, anxiety. Denies: suicidal ideation Mental Status Exam Patient orientation: Yes Person, Yes Time, Yes Place Level of alertness: Sedated Patient appearance: Unkempt, Disheveled, Malodorous Behavior: calm, anxious, withdrawn Psychomotor activity: Slowed Eye contact: Minimal Contact Mood description: Depressed, Anxious Affect description: constricted Speech pattern: Clear, Coherent, Slowed Speech volume: Soft/Quiet Thought process: Linear, Goal Oriented Thought content: No Suicidal ideation, No Homicidal ideation Perceptual disturbances: No Auditory hallucinations, No Visual hallucinations Attention span: Capable of Sustained Attention Memory description: Grossly Intact Patient reliability: Reliable Historian Intelligence estimate: Average Judgment: Limited Insight: Partial Results - Vital Signs Vital signs: Temp Pulse Resp BP Pulse Ox 98.5 F 74 16 149/78 96 12/17/16 11:32 12/17/16 11:32 12/17/16 11:51 12/17/16 11:32 12/17/16 11:51 - Labs Labs: Laboratory Last Values WBC 5.1 K/mcL (4.3-11.1) 12/17/16 04:22 RBC 2.93 M/mcL (4.19-5.50) L 12/17/16 04:22 Hgb 9.1 g/dL (12.9-16.9) L 12/17/16 04:22 Hct 27.7 % (37.5-50.1) L 12/17/16 04:22 MCV 94.5 fL (83.0-100.0) 12/17/16 04:22 MCH 31.1 pg (28.0-33.3) 12/17/16 04:22 MCHC 32.9 g/dL (31.6-35.5) 12/17/16 04:22 RDW 16.0 % (11.5-14.5) H 12/17/16 04:22 Plt Count 357 K/mcL (140-400) 12/17/16 04:22 MPV 10.5 fL (9.4-12.4) 12/17/16 04:22 Immature Gran % 0.4 % (0-4) 12/17/16 04:22 Seg Neutrophils % 53.7 % 12/17/16 04:22 Lymphocytes % 29.3 % 12/17/16 04:22 Monocytes % 12.5 % 12/17/16 04:22 Eosinophils % 3.7 % 12/17/16 04:22 Basophils % 0.4 % 12/17/16 04:22 Neutrophils # 2.8 K/mcL (1.6-8.9) 12/17/16 04:22 Lymphocytes # 1.5 K/mcL (0.6-4.6) 12/17/16 04:22 Monocytes # 0.6 K/mcL (0.0-1.3) 12/17/16 04:22 Eosinophils # 0.2 K/mcL (0.0-0.6) 12/17/16 04:22 Basophils # 0.0 K/mcL (0.0-0.2) 12/17/16 04:22 PT 12.2 Seconds (9.4-12.1) H 12/15/16 17:29 INR 1.1 12/15/16 17:29 APTT 28.3 Seconds (26.0-36.0) 12/15/16 17:29 Sodium 142 mEq/L (136-145) 12/17/16 04:22 Potassium 3.7 mEq/L (3.5-4.5) 12/17/16 04:22 Chloride 112 mEq/L (98-109) H 12/17/16 04:22 Carbon Dioxide 22 mEq/L (19-29) 12/17/16 04:22 BUN 13 mg/dL (8-26) 12/17/16 04:22 Creatinine 1.00 mg/dL (0.72-1.25) 12/17/16 04:22 Est GFR ( Amer) > 60 (> 60) 12/17/16 04:22 Est GFR (Non-Af Amer) > 60 (> 60) 12/17/16 04:22 BUN/Creatinine Ratio 13 (6-26) 12/17/16 04:22 Glucose 135 mg/dL (70-99) H 12/17/16 04:22 POC Glucose 106 (58-89) H 12/16/16 11:36 Calculated Osmolality 296 (280-300) 12/17/16 04:22 Calcium 8.9 mg/dL (8.6-10.8) 12/17/16 04:22 Phosphorus 4.3 mg/dL (2.3-4.7) 12/17/16 04:22 Magnesium 1.5 mg/dL (1.6-2.6) L 12/17/16 04:22 Iron 27 mcg/dL (65-175) L 12/16/16 05:14 % Saturation 7 % (20-55) L 12/16/16 05:14 Transferrin 261 mg/dL (174-364) 12/16/16 05:14 Stool Occult Blood Positive (Negative) A 12/15/16 14:30 Blood Type O POSITIVE 12/15/16 17:29 Antibody Screen POSITIVE 12/15/16 17:29 Antibody Identification Anti-E 12/15/16 17:29 Crossmatch See Detail 12/15/16 17:29 MTS Gel Crossmatch See Detail 12/15/16 17:29 Consult Discharge Plan - Plan Referrals: [facility] [Outside] - 12/31/16 2:30 pm (First appt. available at the [place] for the hospital follow up.)
[2016-12-17] MEDS: Divalproex (24 HR) 500 MG TABLET PO SCH (21:22)
[2016-12-17] MEDS: Mirtazapine 15 MG TABLET PO SCH (21:23)
[2016-12-18 04:39] LABS: Basophils % 0.5 %; Eosinophils # 0.3 K/mcL (0.0-0.6); Eosinophils % 4.6 %; Hematocrit 28.4 % (37.5-50.1); Hemoglobin 9.1 g/dL (12.9-16.9); Immature Granulocytes % 0.5 % (0-4); Lymphocytes # 1.9 K/mcL (0.6-4.6); Lymphocytes % 32.4 %; Mean Corpuscular Hemoglobin 29.8 pg (28.0-33.3); Mean Corpuscular Volume 93.1 fL (83.0-100.0); Mean Platelet Volume 10.4 fL (9.4-12.4); Monocytes # 0.8 K/mcL (0.0-1.3); Neutrophils # 2.9 K/mcL (1.6-8.9); Platelet Count 370 K/mcL (140-400); Red Blood Count 3.05 M/mcL (4.19-5.50); Red Cell Distribution Width 15.7 % (11.5-14.5)
[2016-12-18 04:52] LABS: BUN/Creatinine Ratio 10 (6-26); Blood Urea Nitrogen 10 mg/dL (8-26); Calcium 8.8 mg/dL (8.6-10.8); Carbon Dioxide 24 mEq/L (19-29); Chloride 111 mEq/L (98-109); Glucose 118 mg/dL (70-99); Osmolality,Calculated 294 (280-300); Phosphorous 4.1 mg/dL (2.3-4.7); Potassium 3.5 mEq/L (3.5-4.5); Sodium 142 mEq/L (136-145); eGFR For African Americans > 60 (> 60); eGFR For Non-African Americans > 60 (> 60)
[2016-12-18] MEDS: Pantoprazole 40 MG VIAL IVP SCH (06:11)
[2016-12-18] MEDS: Budesonide/Formoterol 160/4.5 MDI IH SCH (08:08)
[2016-12-18] MEDS: Cholecalciferol (D-3) 1,000 UNIT TABLET PO SCH (08:23)
[2016-12-18] MEDS: Sucralfate 1 GM TABLET PO SCH ×2 (08:23→12:01)
[2016-12-18] MEDS: Multivit/Ca/Min/Fe/FA 1 TAB TABLET PO SCH (08:23)
[2016-12-18] MEDS: amLODIPine 5 MG TABLET PO SCH (08:23)
--- NOTE | 2016-12-18 10:30 | Discharge Summary ---
Date of Encounter: 12/18/16 Time of Encounter: 12:07 - Discharge Diagnosis (1) Blood loss anemia Priority: Primary Status: Acute (2) GI bleed Priority: Primary Status: Acute Qualifiers: GI bleed type/associated pathology: melena Qualified Code(s): K92.1 - Melena (3) DVT prophylaxis Priority: Secondary Status: Acute (4) COPD (chronic obstructive pulmonary disease) Priority: Secondary Status: Chronic Qualifiers: COPD type: unspecified COPD Qualified Code(s): J44.9 - Chronic obstructive pulmonary disease, unspecified (5) Hypertension Priority: Secondary Status: Chronic Qualifiers: Hypertension type: essential hypertension Qualified Code(s): I10 - Essential (primary) hypertension (6) Tobacco abuse Priority: Secondary Status: Chronic (7) Depression Priority: Secondary Status: Chronic Qualifiers: Depression Type: unspecified Qualified Code(s): F32.9 - Major depressive disorder, single episode, unspecified - Discharge Medications Prescriptions: Tramadol HCl [Ultram] 50 mg PO Q6H PRN #30 tab PRN Reason: Pain Home Medications: Albuterol Sulfate [Ventolin Hfa] 2 puff PO Q4H PRN 04/07/16 [History] Amlodipine Besylate 7.5 mg PO DAILY 04/07/16 [History] Budesonide/Formoterol 160/4.5 [Symbicort 160/4.5] 2 puff IH BIDR 04/07/16 [ History] Divalproex (24 HR) [Depakote ER (24 HR)] 1,500 mg PO HS 04/07/16 [History] Hydrochlorothiazide 25 mg PO DAILY 04/07/16 [History] Prazosin HCl [Minipress] 2 mg PO HS 04/07/16 [History] Pantoprazole Sodium [Protonix] 40 mg PO BID #60 granpkt. 06/29/16 [Rx] Ferrous Sulfate [Iron] 325 mg PO BID 08/25/16 [History] Sildenafil Citrate [Viagra] 50 mg PO DAILY PRN 08/25/16 [History] Cholecalciferol (D-3) [Vitamin D] 4,000 unit PO DAILY 12/15/16 [History] DiphenhydraMINE [Benadryl] 50 mg PO HS PRN 12/15/16 [History] Mirtazapine [Remeron] 30 mg PO HS 12/15/16 [History] Multivitamin [Multi-Day Vitamins] 1 each PO DAILY 12/15/16 [History] Sucralfate [Carafate] 1 gm PO QID 12/15/16 [History] Triamcinolone Acet 0.1% CRM [Kenalog] 1 appl TP BID PRN 12/15/16 [History] Tramadol HCl [Ultram] 50 mg PO Q6H PRN #30 tab 12/18/16 [Rx] Allergies/Adverse Reactions: Allergies acetaminophen [From Tylenol] Allergy (Verified 08/25/16 09:02) Hives atenolol Allergy (Verified 08/25/16 09:02) Gastrointestinal Upset bisacodyl Allergy (Verified 08/25/16 09:02) Gastrointestinal Upset Procedures/tests Complete & Pending: Procedures Performed prior 72 hours Category Date Time Status ECG 12 lead ECG [ECG] Routine Y 12/15/16 21:53 Completed Date of admission: 12/15/16 23:05 Primary care physician: PCP [place] Consults: 12/16/16 10:49 Consult to Gastroenterology [CONS] Stat Consulting Provider: Gastroenterology Alivia Reason for Consult: ugib Call Completed: Yes 12/16/16 10:51 Consult to Computer Forensics Analyst [CONS] Routine Reason for SW Consult: discharge planning 12/16/16 15:01 Consult to Psychiatry [CONS] Routine Consulting Provider: Psychiatry Alivia Reason for Consult: suicidal ideations/depression Call Completed: No Discharging clinician: Nidia Hartmann Anticipated date of discharge: 12/18/16 - Patient Status Disposition: Home, Self-Care Condition: Fair Functional capacity at discharge: independent ambulation Overall status at discharge: patient is back to baseline - Discharge Instructions Follow Up With: [facility] [Outside] - 12/31/16 2:30 pm (First appt. available at the [place] for the hospital follow up.) Maximo Michaels MD [Partnered Physician] - 12/23/16 2:40 pm (5 days after discharge< [address]) Additional Instructions: Please follow up with her primary care physician within one week after discharge from the hospital. Follow-up with gastroenterology within 5 days after discharge from the hospital. Follow-up with psychiatry within 1-2 weeks after discharge from the hospital. Continue all home medications as prescribed by her primary care physician medical help immediately if another episode of GI bleed occurs. - Diet and Activity Activity: resume usual activities as tolerated Diet: low salt diet Hospital course: Mr. Hartley is a 66 year old male , history of GI bleed, arthritis, hypertension , depression who was admitted for management of lower GI bleed and acute blood loss anemia. Patient was seen by gastroenterology and underwent EGD. EGD was negative for any acute bleeding. Patient received 2 units of PRBC transfusion. He has had no episodes of acute bleeding since hospitalization, and H&H has remained stable. Patient follows with gastroenterology and PCP with the [facility] system. He also reported of having chronic depression which had worsened and he has had difficult time getting follow-up care with his primary psychiatrist. Psych evaluation was consulted during this hospitalization. No acute management was recommended by psychiatry and outpatient follow-up was recommended. At this time patient is stable for discharge, H&H is within acceptable range. No active bleeding has been noted since hospitalization. Patient is tolerating by mouth diet well. He will be discharged to home with follow-up with GI, PCP, and psychiatry. Patient understands his diagnosis, and agrees with this discharge care and plan. - Time Spent with Patient Total time spent providing and/or coordinating discharge services: - Constitutional Vitals: Temp Pulse Resp BP Pulse Ox 98.4 F 70 14 116/66 96 12/18/16 07:05 12/18/16 07:05 12/18/16 07:05 12/18/16 07:05 12/18/16 07:05 General appearance: Present: A&O X 3, no acute distress, answers questions appropriately - Head Head exam: Present: atraumatic, normocephalic - Eye Eye exam: Present: normal appearance, conjuntiva pink, sclera anicteric - Respiratory Respiratory exam: Present: CTAB. Absent: respiratory distress, wheezes - Cardiovascular Cardiovascular exam: Present: RRR, +S1, +S2 - GI/Abdominal GI/Abdominal exam: Present: normal bowel sounds, soft. Absent: distended, tenderness - Extremities Exam Extremities exam: Present: warm, radial pulses palpable and symetrical. Absent : pedal edema - Neurological Exam Neurological exam: Present: alert, oriented X3 - Psychiatric Psychiatric exam: Present: normal affect, normal mood - VTE Documentation of Mechanical Device: Intermittent pneumatic compression device
[2016-12-18 11:04] VITALS: BP 129/75
== END 2016-12-18 14:36 | disposition home or self-care (01) | DRG 378 ==
LOC: 3ANU 16:36 → EMEROO 16:36 → 3ANU 20:11
PROVIDERS: ADMIT Family Medicine; ATTEND Internal Medicine

== ENCOUNTER 2017-03-30 14:25 | Inpatient (IN) ==
--- NOTE | 2017-03-30 15:10 | Emergency Department Note ---
Disposition Clinical Impression: GI bleed Disposition: Admitted As Inpatient GI Bleed HPI - General Chief complaint: ED GI Bleed Stated complaint: GI bleed Time Seen by Provider: 03/30/17 14:58 Source: patient, EMS Limitations: no limitations Nursing Notes Reviewed: Yes Vital Signs Reviewed: Yes - History of Present Illness HPI Narrative: Patient comes in the CT due to bleeding per rectum. Per report patient has had several episodes where he is required admission for. Patient states he had the bleeding per rectum for the past 2 days. He has progressively had more dizziness and he complains of numbness and tingling of his fingers. Patient was seen at the CT and evaluated then sent to this facility for further evaluation. I discussed this patient with Dr. Michaels who suggested admission with a GI consult. Patient denies chest pain denies shortness of breath associated. - Related Data Home Medications Medication Instructions Recorded Confirmed Divalproex (24 HR) [Depakote ER 1,500 mg PO HS 04/07/16 03/30/17 (24 HR)] Prazosin HCl [Minipress] 2 mg PO HS 04/07/16 03/30/17 Sildenafil Citrate [Viagra] 50 mg PO DAILY PRN 08/25/16 03/30/17 Cholecalciferol (D-3) [Vitamin D] 4,000 unit PO DAILY 12/15/16 03/30/17 Mirtazapine [Remeron] 30 mg PO HS 12/15/16 03/30/17 Multivitamin [Multi-Day Vitamins] 1 each PO DAILY 12/15/16 03/30/17 Triamcinolone Acet 0.1% CRM 1 appl TP BID PRN 12/15/16 03/30/17 [Kenalog] Allergies Allergy/AdvReac Type Severity Reaction Status Date / Time acetaminophen [From Tylenol] Allergy Hives Verified 08/25/16 09:02 atenolol Allergy Gastrointestinal Verified 08/25/16 09:02 Upset bisacodyl Allergy Gastrointestinal Verified 08/25/16 09:02 Upset All systems ED: reviewed and negative except as stated. Past Medical History - Past Medical History Source: patient Medical history: Reports: arthritis, GERD, hypertension, other Surgical history: Reports: other Psychiatric history: Reports: depression, previous psychiatric hospitalization, other - Social History Smoking Status: Current every day smoker Smokeless Tobacco Status: No Alcohol use: Reports: rarely Drug use: Reports: none Physical Exam - General Limitations: no limitations General appearance: alert - Head Head exam: atraumatic, normocephalic, normal inspection - Eye Eye exam: Present: normal appearance, PERRL, EOMI - ENT ENT exam: normal exam, normal oropharynx, mucous membranes moist - Neck Neck exam: Present: normal inspection, full ROM, trachea midline - Chest Chest inspection: Present: normal inspection, symmetric chest wall rise - Respiratory Respiratory exam: Present: normal lung sounds bilaterally - Cardiovascular Cardiovascular exam: Present: regular rate, normal rhythm, normal heart sounds - Abdominal Exam Abdominal exam: Present: soft, Non-Tender. Absent: tenderness, distention, guarding, rebound, rigidity - Extremities Exam Extremities exam: Present: normal inspection, full ROM. Absent: tenderness, pedal edema - Back Exam Back exam: Present: normal inspection, full ROM. Absent: tenderness - Neurological Exam Neurological exam: Present: alert, oriented X3 - Psychiatric Psychiatric exam: Present: normal affect, normal mood - Skin Skin exam: Present: warm, dry, intact, normal color Course Vital Signs Temperature 98.4 F 03/30/17 14:31 Pulse Rate 75 03/30/17 14:31 Respiratory Rate 18 03/30/17 14:31 Blood Pressure 131/70 03/30/17 14:31 O2 Sat by Pulse Oximetry 100 03/30/17 14:31 Temperature 98.4 F 03/30/17 14:31 Pulse Rate 75 03/30/17 14:31 Respiratory Rate 18 03/30/17 14:31 Blood Pressure 131/70 03/30/17 14:31 O2 Sat by Pulse Oximetry 100 03/30/17 14:31 Oxygen Delivery Oxygen Delivery Room Air GI Bleed - Differential Diagnosis Likely: hemorrhoids, -Castillo syndrome, Upper gastrointestinal hemorrhage, Lower gastrointestinal hemorrhage, hematochezia, melena - Lab Data Lab results reviewed: Yes I reviewed the patient's lab results. Lab results narrative: Laboratory results performed the CT were unremarkable. Hemoglobin was 9.9. INR is pending at this time. Lab Results 03/30/17 Range/Units 15:58 PT 11.8 (9.4-12.1) Seconds INR 1.1 APTT 27.5 (26.0-36.0) Seconds
[2017-03-30 16:18] LABS: INR 1.1; Prothrombin Time 11.8 Seconds (9.4-12.1)
[2017-03-30 16:19] LABS: Activated Partial Thrombo Time 27.5 Seconds (26.0-36.0)
[2017-03-30] MEDS ORDERED: Naloxone 0.4 MG/ML INJ IVP PRN (19:27)
[2017-03-30] MEDS ORDERED: Ondansetron ODT 4 MG TAB.RAPDIS SL PRN (19:27)
[2017-03-30 20:14] LABS: Hematocrit 24.1 % (37.5-50.1); Hemoglobin 8.4 g/dL (12.9-16.9)
--- NOTE | 2017-03-30 21:01 | Internal Med History&Physical ---
Date of Encounter: 03/30/17 Time of Encounter: 20:56 Assessment and Plan (1) GI bleed Current visit: Yes Status: Acute Recurrent. Patient reports extensive GI workup in the past. Was admitted [address] Michaels, EGD showed no bleeding ulcers at that time. Now with intermittent melena and hematochezia. [facility] abdominal CT with fatty liver and right renal cyst, otherwise nonacute. Hgb 9.9 prior to transfer to a [facility]. Repeat Hgb 8.4 in the ED. Clear liquid diet, IV PPI, IV fluids, monitor H&H and transfuse for Hgb less than 8. Electronic consult placed for GI (will need to be called in in the morning) Qualifiers: GI bleed type/associated pathology: unspecified gastrointestinal hemorrhage type Qualified Code(s): K92.2 - Gastrointestinal hemorrhage, unspecified (2) Blood loss anemia Current visit: No Status: Acute Secondary to GI bleed. Hgb 8.4; baseline appears to be around 8-9. No active bleeding on exam. Check occult stool. Plan as noted above (3) Hypertension Current visit: No Status: Acute Per history. BP soft/borderline, will hold home BP medications at this time. Monitor BP and resume medications as BP allows. Qualifiers: Hypertension type: essential hypertension Qualified Code(s): I10 - Essential (primary) hypertension (4) Renal cyst Current visit: Yes Status: Acute Incidentally found. Abdominal CT at [facility] prior to transfer showed right renal lesions most likely strep representing a cyst. Renal ultrasound pending. (5) DVT prophylaxis Current visit: No Status: Acute SCDs Internal Medicine - H&P: HPI Chief complaint: Blood in my stool Admitted From: Home History of present illness: Mr. Hartley is a 67 year old male with past medical history acute blood loss anemia recurrent GI bleed and hypertension who presented to the [facility] on 03/30/2017 with complaints of dark black and bright red stool for the past 3 days. He was transferred to [facility] for GI evaluation and further workup and treatment. Information obtained from patient and chart review. Patient reports that for the last 3 days he has had intermittent black tarry stools alternating with episodes of bright red blood. He denies NSAID, prednisone, anticoagulation use. Says he has had extensive GI workup in the past and noted bleeding has been found. On my exam he is hungry, complains of excessive gas but otherwise has no complaints. No abdominal pain. No nausea vomiting diarrhea. No chest pain. Says he was short of breath a few days ago worse with ambulation but denies all my exam. Past Med Surg Social Fam HX - Past Medical History Medical history: arthritis, GERD, hypertension, other Psychiatric history: depression, previous psychiatric hospitalization, other - Past Surgical History Surgical History: other - Social History Smoking Status: Current every day smoker Smokeless Tobacco Status: No Alcohol use: rarely Drug use: none - Family History Sister Adopted: No Living Status: Still Living Internal Medicine - H&P: Meds Divalproex (24 HR) [Depakote ER (24 HR)] 1,500 mg PO HS 04/07/16 [History] Prazosin HCl [Minipress] 2 mg PO HS 04/07/16 [History] Sildenafil Citrate [Viagra] 50 mg PO DAILY PRN 08/25/16 [History] Cholecalciferol (D-3) [Vitamin D] 4,000 unit PO DAILY 12/15/16 [History] Mirtazapine [Remeron] 30 mg PO HS 12/15/16 [History] Multivitamin [Multi-Day Vitamins] 1 each PO DAILY 12/15/16 [History] Triamcinolone Acet 0.1% CRM [Kenalog] 1 appl TP BID PRN 12/15/16 [History] Allergies acetaminophen [From Tylenol] Allergy (Verified 08/25/16 09:02) Hives atenolol Allergy (Verified 08/25/16 09:02) Gastrointestinal Upset bisacodyl Allergy (Verified 08/25/16 09:02) Gastrointestinal Upset All Systems PM: A 10-system review of systems was performed and is negative for pertinent findings except as documented above in the HPI. - Constitutional Constitutional: no chills, no fever(s), no night sweats - EENT Eyes: no change in vision, no discharge, no pain, no photophobia Ears: no ear discharge, no ear pain, no tinnitus Nose, mouth and throat: no dysphagia, no nasal discharge, no neck pain, no sore throat - Cardiovascular Cardiovascular ROS IM: no chest pain, no diaphoresis, no dyspnea, no lightheadedness, no palpitations, no syncope - Respiratory Respiratory: no cough, no dyspnea, no wheezing, no excessive phlegm production - Gastrointestinal Gastrointestinal: as per HPI, hematochezia, melena, no abdominal pain, no diarrhea, no hematemesis, no nausea, no vomiting - Musculoskeletal Musculoskeletal ROS IM: no numbness, no tingling - Integumentary Integumentary IM: no rash, no unusual bruising - Neurological Neurological ROS: no confusion, no convulsions, no focal weakness, no numbness, no tingling, no tremor(s) - Hematologic/Lymphatic Hematologic/Lymphatic: no easy bruising - Constitutional Vitals: Temp Pulse Resp BP Pulse Ox 98.4 F 77 18 123/72 100 03/30/17 14:31 03/30/17 19:25 03/30/17 19:36 03/30/17 19:36 03/30/17 19:25 General appearance: Present: A&O X 3 - Head Head exam: Present: atraumatic, normocephalic - Eye Eye exam: Present: PERRL, conjuntiva pink, sclera anicteric Pupils: Present: PERRL - Neck Neck exam general surgery: Present: supple, trachea midline. Absent: lymphadenopathy - Respiratory Respiratory exam: Present: CTAB. Absent: accessory muscle use, rales, rhonchi, wheezes - Cardiovascular Cardiovascular exam: Present: RRR, +S1, +S2. Absent: diastolic murmur, gallop, rubs, systolic murmur - GI/Abdominal GI/Abdominal exam: Present: normal bowel sounds, soft, no peritoneal signs. Absent: distended, tenderness Additional comments: Obese - Extremities Exam Extremities exam: Present: warm, radial pulses palpable and symetrical. Absent : calf tenderness, cyanotic, pedal edema - Neurological Exam Neurological exam: Present: CN II-XII intact, oriented X3, no focal deficits. Absent: pronater drift, facial droop, speech deficit - Skin Skin exam: Present: dry, intact Internal Med - H&P Results - Labs CBC & Chem 7: 03/30/17 19:55 Labs: Short CBC 03/30/17 Range/Units 19:55 Hgb 8.4 L (12.9-16.9) g/dL Hct 24.1 L (37.5-50.1) %
[2017-03-30 21:23] LABS: Alanine Aminotransferase 29 Units/L (0-55); Albumin/Globulin Ratio 1.1 (1.1-2.2); Alkaline Phosphatase 54 Units/L (38-126); Aspartate Amino Transferase 30 Units/L (5-34); BUN/Creatinine Ratio 19 (6-26); Bilirubin,Total 0.4 mg/dL (0.2-1.2); Blood Urea Nitrogen 18 mg/dL (8-26); Calcium 8.7 mg/dL (8.6-10.8); Carbon Dioxide 26 mEq/L (19-29); Chloride 105 mEq/L (98-109); Globulin 2.8 g/dL (2.4-3.5); Glucose 86 mg/dL (70-99); Osmolality,Calculated 287 (280-300); Potassium 3.3 mEq/L (3.5-4.5); Sodium 138 mEq/L (136-145); Total Protein 5.8 g/dL (6.0-8.3); eGFR For African Americans > 60 (> 60); eGFR For Non-African Americans > 60 (> 60)
[2017-03-30] MEDS: Mirtazapine 15 MG TABLET PO SCH (21:38)
[2017-03-30] MEDS: Pantoprazole 40 MG in 0.9 % Sodium Chloride Mini Bag 100 ML IVC SCH (21:39)
[2017-03-30] MEDS: 0.9 % Sodium Chloride 1,000 ML IVC SCH (21:39)
[2017-03-30] MEDS: Divalproex (24 HR) 500 MG TABLET PO SCH (21:39)
[2017-03-30 23:27] LABS: Hematocrit 22.8 % (37.5-50.1)
[2017-03-31] MEDS ORDERED: 0.9 % Sodium Chloride 250 ML ONE (01:13)
[2017-03-31] MEDS: Pantoprazole 40 MG in 0.9 % Sodium Chloride Mini Bag 100 ML IVC SCH ×5 (02:11→22:53)
[2017-03-31 06:28] LABS: Basophils % 0.2 %; Eosinophils # 0.1 K/mcL (0.0-0.6); Eosinophils % 2.6 %; Hemoglobin 8.5 g/dL (12.9-16.9); Immature Granulocytes % 0.7 % (0-4); Lymphocytes # 1.6 K/mcL (0.6-4.6); Lymphocytes % 29.6 %; Mean Corpuscular Hemoglobin 31.7 pg (28.0-33.3); Mean Corpuscular Volume 93.3 fL (83.0-100.0); Mean Platelet Volume 10.7 fL (9.4-12.4); Monocytes # 0.6 K/mcL (0.0-1.3); Monocytes % 10.3 %; Neutrophils # 3.1 K/mcL (1.6-8.9); Nucleated Red Blood Cells 0.4 /100 WBC (0); Platelet Count 246 K/mcL (140-400); Red Blood Count 2.68 M/mcL (4.19-5.50); Red Cell Distribution Width 17.2 % (11.5-14.5); Segmented Neutrophils % 56.6 %
[2017-03-31 06:51] LABS: Alanine Aminotransferase 25 Units/L (0-55); Albumin 2.6 g/dL (3.5-5.0); Alkaline Phosphatase 48 Units/L (38-126); Aspartate Amino Transferase 26 Units/L (5-34); BUN/Creatinine Ratio 19 (6-26); Bilirubin,Total 0.4 mg/dL (0.2-1.2); Blood Urea Nitrogen 17 mg/dL (8-26); Calcium 8.3 mg/dL (8.6-10.8); Carbon Dioxide 26 mEq/L (19-29); Chloride 106 mEq/L (98-109); Globulin 2.6 g/dL (2.4-3.5); Glucose 97 mg/dL (70-99); Osmolality,Calculated 287 (280-300); Potassium 3.2 mEq/L (3.5-4.5); Sodium 138 mEq/L (136-145); Total Protein 5.2 g/dL (6.0-8.3); eGFR For African Americans > 60 (> 60); eGFR For Non-African Americans > 60 (> 60)
[2017-03-31] MEDS: Multivit/Ca/Min/Fe/FA 1 TAB TABLET PO SCH (07:35)
[2017-03-31] MEDS: 0.9 % Sodium Chloride 1,000 ML IVC SCH ×2 (10:05→22:53)
--- NOTE | 2017-03-31 14:14 | Gastroenterology Consult Note ---
<SalHenry stanton Melia - Last Filed: 03/31/17 14:11> Date of Encounter: 03/31/17 Time of Encounter: 11:15 - Assessment and plan (1) GI bleed Current Visit: Yes Status: Acute Assessment and plan: Pt with melena and occasional BRBPR. He underwent EGD Dec 2016 with one non- bleeding duodenal ulcer. Plan for enteroscopy tomorrow. Keep NPO at midnight. Will consider colonoscopy if enteroscopy negative. Qualifiers: GI bleed type/associated pathology: unspecified gastrointestinal hemorrhage type Qualified Code(s): K92.2 - Gastrointestinal hemorrhage, unspecified (2) Anemia Current Visit: No Status: Chronic Assessment and plan: Secondary to GI bleeding. Continue to monitor CBC and transfuse PRBC as needed. Qualifiers: Anemia type: other cause Other causes of anemia: chronic disease, other Qualified Code(s): D63.8 - Anemia in other chronic diseases classified elsewhere - Time Spent With Patient Total time spent is greater than 50% in coordination of care (as documented) at patient's floor/unit and/or counseling patient: GI History of Present Illness - Data of Consult Patient: known to practice within the last 3 years Consult date: 03/31/17 Requesting Physician: Facundo Hale MD - Consult Narrative Reason for consult: GI Bleed History of present illness: Mr. Hartley is a 67 year old male with PMHx of arthritis, COPD, PTSD, GERD, HTN, and history of recurrent GI bleed. He presented to the [facility] on 03/30/2017 with complaints of black tarry stools alternating with BRBPR for the past 3 days. He was transferred to [facility] for GI evaluation and further workup and treatment. No NSAID or anticoagulation use. No fevers, chills, chest pain, nausea, vomiting, or diarrhea. Procedures: 12/16/[address] Michaels: One non-bleeding duodenal ulcer, duodenitis. 06/2016 EGD inflammation of duodenal bulb 06/2016 Colonoscopy negative per pt report. Capsule endoscopy Oct 2016 at the [facility]. NSAIDs: None Anticoagulation: None Past Med Surg Social Fam HX - Past Medical History Medical history: arthritis, GERD, hypertension, other Psychiatric history: depression, previous psychiatric hospitalization, other - Past Surgical History Surgical History: other - Social History Smoking Status: Current every day smoker Smokeless Tobacco Status: No Alcohol use: rarely Drug use: none - Family History Brother Hx Family Endocrine Disorder: Yes Sister Adopted: No Living Status: Still Living Hx Family Endocrine Disorder: Yes - Gastrointestinal Gastrointestinal: Present: as per HPI - Constitutional Constitutional: as per HPI - EENT Eyes: as per HPI Ears: Present: as per HPI Nose, mouth and throat: Present: as per HPI - Cardiovascular Cardiovascular ROS: Present: as per HPI - Respiratory Respiratory IM: Present: as per HPI - Genitourinary Genitourinary: Absent: change in color, Urinary frequency - Neurological ROS Neurological GI: Present: as per HPI - Hematologic/Lymphatic Hematologic/Lymphatic pediatric: Present: as per HPI - Musculoskeletal Musculoskeletal ROS GI: Present: as per HPI - Integumentary Integumentary GI: Present: as per HPI - Psychiatric ROS Psychiatric GI: Present: as per HPI - Endocrine Endocrine IM: Present: as per HPI - Constitutional Vitals: Temp Pulse Resp BP Pulse Ox 98.8 F 71 17 106/61 98 03/31/17 10:24 03/31/17 10:24 03/31/17 10:24 03/31/17 10:24 03/31/17 10:24 General appearance: Present: cooperative, A&O X 3, no acute distress, answers questions appropriately - Head Head exam: Present: atraumatic, normocephalic - Eye Eye exam: Present: normal appearance, sclera anicteric - ENT ENT exam: Present: mucous membranes dry - Neck Neck exam general surgery: Present: normal inspection, trachea midline - Respiratory Respiratory exam: Present: CTAB. Absent: rales, rhonchi - Cardiovascular Cardiovascular exam: Present: RRR, +S1, +S2 - GI/Abdominal GI/Abdominal exam: Present: soft, tenderness (LUQ), no peritoneal signs. Absent : distended, firm, guarding - Rectal Rectal exam: Present: deferred - Extremities Exam Extremities exam: Present: warm - Neurological Exam Neurological exam: Present: no focal deficits - Psychiatric Psychiatric exam: Present: normal affect, normal mood - Skin Skin exam: Present: dry, intact, normal color, warm Results - Labs CBC & Chem 7: 03/31/17 06:19 03/31/17 06:19 Labs: Last Result Calcium 8.3 mg/dL (8.6-10.8) L 03/31/17 06:19 Entire Visit Hgb 8.5 g/dL (12.9-16.9) L 03/31/17 06:19 Hct 25.0 % (37.5-50.1) L 03/31/17 06:19 PT 11.8 Seconds (9.4-12.1) 03/30/17 15:58 Total Bilirubin 0.4 mg/dL (0.2-1.2) 03/31/17 06:19 AST 26 Units/L (5-34) 03/31/17 06:19 ALT 25 Units/L (0-55) 03/31/17 06:19 - ABG ABG results: PT/INR, D-dimer PT 11.8 Seconds (9.4-12.1) 03/30/17 15:58 Consult Discharge Plan - Plan Referrals: [facility] [Outside] - 04/15/17 10:15 am <Maximo Michaels - Last Filed: 03/31/17 18:27> Date of Encounter: 03/31/17 Time of Encounter: 15:00 - Time Spent With Patient Total time spent is greater than 50% in coordination of care (as documented) at patient's floor/unit and/or counseling patient: GI History of Present Illness - Data of Consult Requesting Physician: Facundo Hale MD - Consult Narrative History of present illness: Mr. Hartley is a 67 year old male - Constitutional Vitals: Temp Pulse Resp BP Pulse Ox 98.4 F 75 17 109/71 97 03/31/17 14:35 03/31/17 14:35 03/31/17 14:35 03/31/17 14:35 03/31/17 14:35 Results - Labs CBC & Chem 7: 03/31/17 06:19 03/31/17 06:19 Labs: Last Result Calcium 8.3 mg/dL (8.6-10.8) L 03/31/17 06:19 Entire Visit Hgb 8.5 g/dL (12.9-16.9) L 03/31/17 06:19 Hct 25.0 % (37.5-50.1) L 03/31/17 06:19 PT 11.8 Seconds (9.4-12.1) 03/30/17 15:58 Total Bilirubin 0.4 mg/dL (0.2-1.2) 03/31/17 06:19 AST 26 Units/L (5-34) 03/31/17 06:19 ALT 25 Units/L (0-55) 03/31/17 06:19 - ABG ABG results: PT/INR, D-dimer PT 11.8 Seconds (9.4-12.1) 03/30/17 15:58 - Attending Attestation I examined this patient and my medical decision-making was reviewed with the DEPALLETIZER OPERATOR/PA/Advanced Practice Nurse/Resident Physician. I agree with the documented findings, disposition and treatment plan as described except to the extent set forth below.
--- NOTE | 2017-03-31 19:12 | Internal Med Progress Note ---
Date of Encounter: 03/31/17 Time of Encounter: 17:00 - Assessment and plan (1) GI bleed Current Visit: Yes Status: Acute Assessment and plan: Appreciate GI recommendations. Continue with IV Protonix. Plan for EGD tomorrow. Nothing by mouth after midnight. Qualifiers: GI bleed type/associated pathology: unspecified gastrointestinal hemorrhage type Qualified Code(s): K92.2 - Gastrointestinal hemorrhage, unspecified (2) Hypertension Current Visit: No Status: Acute Assessment and plan: Continue his oral meds per home medication regimen. Qualifiers: Hypertension type: essential hypertension Qualified Code(s): I10 - Essential (primary) hypertension (3) Blood loss anemia Current Visit: No Status: Acute Assessment and plan: Hemoglobin increased to 8.5 which is is an inappropriate response, likely patient is still slowly bleeding. We will monitor hemoglobin and hematocrit and transfuse if below 8. - Subjective Interval history: Patient presented to the hospital with melena and associated weakness. He states that his weakness has improved over the last 24 hours. He received 1 unit of blood transfusion. Denies hematemesis and chest pain. - Constitutional Vitals: Temp Pulse Resp BP Pulse Ox 98.4 F 75 17 109/71 97 03/31/17 14:35 03/31/17 14:35 03/31/17 14:35 03/31/17 14:35 03/31/17 14:35 General appearance: Present: A&O X 3 - Respiratory Respiratory exam: Present: CTAB. Absent: accessory muscle use, rales, rhonchi, wheezes - Cardiovascular Cardiovascular exam: Present: RRR, +S1, +S2. Absent: diastolic murmur, gallop, rubs, systolic murmur - GI/Abdominal GI/Abdominal exam: Present: normal bowel sounds, soft, no peritoneal signs. Absent: distended, tenderness - Extremities Exam Extremities exam: Present: warm, radial pulses palpable and symetrical. Absent : calf tenderness, cyanotic, pedal edema - Skin Skin exam: Present: dry, intact Internal Medicine: Result - Labs CBC & Chem 7: 03/31/17 06:19 03/31/17 06:19 Labs: Short CBC 03/30/17 03/30/17 03/31/17 Range/Units 19:55 22:56 06:19 WBC 5.4 (4.3-11.1) K/mcL Hgb 8.4 L 8.0 L 8.5 L (12.9-16.9) g/dL Hct 24.1 L 22.8 L 25.0 L (37.5-50.1) % Plt Count 246 (140-400) K/mcL Neutrophils # 3.1 (1.6-8.9) K/mcL BMP 03/31/17 06:19 Sodium 138 Potassium 3.2 L Chloride 106 Carbon Dioxide 26 BUN 17 Creatinine 0.89 Glucose 97 Calcium 8.3 L Liver Function 03/31/17 Range/Units 06:19 Total Bilirubin 0.4 (0.2-1.2) mg/dL AST 26 (5-34) Units/L ALT 25 (0-55) Units/L Alkaline Phosphatase 48 (38-126) Units/L Albumin 2.6 L (3.5-5.0) g/dL - ABG Interpretation ABG results: PT/INR, D-dimer PT 11.8 Seconds (9.4-12.1) 03/30/17 15:58 Consult Discharge Plan - Plan Referrals: [facility] [Outside] - 04/15/17 10:15 am
[2017-03-31] MEDS: Mirtazapine 15 MG TABLET PO SCH (21:11)
[2017-03-31] MEDS: Divalproex (24 HR) 500 MG TABLET PO SCH (21:12)
[2017-04-01] MEDS: Pantoprazole 40 MG in 0.9 % Sodium Chloride Mini Bag 100 ML IVC SCH ×4 (04:02→20:23)
[2017-04-01 05:40] LABS: Basophils % 0.4 %; Eosinophils # 0.2 K/mcL (0.0-0.6); Eosinophils % 4.2 %; Hematocrit 23.7 % (37.5-50.1); Hemoglobin 8.1 g/dL (12.9-16.9); Immature Granulocytes % 0.6 % (0-4); Lymphocytes # 1.5 K/mcL (0.6-4.6); Lymphocytes % 30.4 %; Mean Corpuscular HGB Conc 34.2 g/dL (31.6-35.5); Mean Corpuscular Hemoglobin 32.3 pg (28.0-33.3); Mean Corpuscular Volume 94.4 fL (83.0-100.0); Mean Platelet Volume 10.6 fL (9.4-12.4); Monocytes # 0.6 K/mcL (0.0-1.3); Monocytes % 10.9 %; Neutrophils # 2.7 K/mcL (1.6-8.9); Platelet Count 253 K/mcL (140-400); Red Blood Count 2.51 M/mcL (4.19-5.50); Red Cell Distribution Width 17.8 % (11.5-14.5); Segmented Neutrophils % 53.5 %
[2017-04-01 05:57] LABS: BUN/Creatinine Ratio 14 (6-26); Blood Urea Nitrogen 14 mg/dL (8-26); Carbon Dioxide 23 mEq/L (19-29); Chloride 113 mEq/L (98-109); Glucose 103 mg/dL (70-99); Osmolality,Calculated 295 (280-300); Potassium 3.6 mEq/L (3.5-4.5); Sodium 142 mEq/L (136-145); eGFR For African Americans > 60 (> 60); eGFR For Non-African Americans > 60 (> 60)
[2017-04-01] MEDS: Multivit/Ca/Min/Fe/FA 1 TAB TABLET PO SCH (07:45)
[2017-04-01] MEDS: 0.9 % Sodium Chloride 1,000 ML IVC SCH (11:49)
[2017-04-01] MEDS ORDERED: *HR* Midazolam HCl 5 MG/5 ML VIAL IVP ONE (17:44)
[2017-04-01] MEDS ORDERED: *HR* FentaNYL (PF) 100 MCG/2 ML VIAL ONE (17:45)
[2017-04-01] MEDS ORDERED: Tetracaine/Benzocaine/Butamben 200MG/SPRAY (100SPY/BOT) MM ONE (17:49)
[2017-04-01] MEDS ORDERED: Simethicone 40 MG/0.6 ML MLS IR ONE (17:49)
--- NOTE | 2017-04-01 17:49 | Pre-Sedation Evaluation ---
Pre-sedation evaluation - Pre-sedation checklist Date of procedure: 04/01/17 Procedure: EGD Recent Vitals: Last Vital Signs Temp 98.2 F 04/01/17 11:15 Pulse 71 04/01/17 11:15 Resp 18 04/01/17 11:15 BP 117/69 04/01/17 11:15 Pulse Ox 98 04/01/17 11:15 H&P (including ROS) documented in medical record: Yes Previous reaction to sedatives/anesthetics: No Dietary Status: NPO after Midnight Dentition: dentures removed ASA Classification *see protocol: CLASS III-Severe systemic disease Plan of Care: Pt appropriate candidate for procedure/moderate/conscious sedation , Risks/benefits of procedure/sedation discussed w/ patient/family
[2017-04-01] MEDS: *HR* Midazolam HCl 5 MG/5 ML VIAL IVP PRN ×3 (18:22→18:26)
[2017-04-01] MEDS: *HR* FentaNYL (PF) 100 MCG/2 ML VIAL IVP PRN ×3 (18:22→18:26)
[2017-04-01] MEDS ORDERED: SODIUM CHLORIDE/NAHCO3/KCL/PEG 4,000 ML SOLN.RECON PO ONE (18:41)
--- NOTE | 2017-04-01 19:01 | Internal Med Progress Note ---
Date of Encounter: 04/01/17 Time of Encounter: 10:00 - Assessment and plan (1) GI bleed Current Visit: Yes Status: Acute Assessment and plan: 04/01/2017: Pending upper endoscopy today. Continue nothing by mouth. IV fluids. Appreciate GI recommendations. Continue with IV Protonix. Plan for EGD tomorrow. Nothing by mouth after midnight. Qualifiers: GI bleed type/associated pathology: unspecified gastrointestinal hemorrhage type Qualified Code(s): K92.2 - Gastrointestinal hemorrhage, unspecified (2) Hypertension Current Visit: No Status: Acute Assessment and plan: Continue his oral meds per home medication regimen. Qualifiers: Hypertension type: essential hypertension Qualified Code(s): I10 - Essential (primary) hypertension (3) Blood loss anemia Current Visit: No Status: Acute Assessment and plan: 04/01/2017: Hemoglobin 8.1 today from 8.5 yesterday. We will continue to trend. Transfuse if below 8. 03/31/2017: Hemoglobin increased to 8.5 which is is an inappropriate response, likely patient is still slowly bleeding. We will monitor hemoglobin and hematocrit and transfuse if below 8. - Subjective Interval history: 04/01/2017: Patient reports no abdominal pain nausea or vomiting. Denies any further melena. 03/31/2017: Patient presented to the hospital with melena and associated weakness. He states that his weakness has improved over the last 24 hours. He received 1 unit of blood transfusion. Denies hematemesis and chest pain. - Constitutional Vitals: Temp Pulse Resp BP Pulse Ox 98.2 F 77 18 166/93 99 04/01/17 18:02 04/01/17 18:35 04/01/17 18:35 04/01/17 18:35 04/01/17 18:35 General appearance: Present: A&O X 3 - Respiratory Respiratory exam: Present: CTAB. Absent: accessory muscle use, rales, rhonchi, wheezes - Cardiovascular Cardiovascular exam: Present: RRR, +S1, +S2. Absent: diastolic murmur, gallop, rubs, systolic murmur - GI/Abdominal GI/Abdominal exam: Present: normal bowel sounds, soft, no peritoneal signs. Absent: distended, tenderness - Extremities Exam Extremities exam: Present: warm, radial pulses palpable and symetrical. Absent : calf tenderness, cyanotic, pedal edema - Skin Skin exam: Present: dry, intact Internal Medicine: Result - Labs CBC & Chem 7: 04/01/17 05:26 04/01/17 05:26 Labs: Short CBC 04/01/17 Range/Units 05:26 WBC 5.1 (4.3-11.1) K/mcL Hgb 8.1 L (12.9-16.9) g/dL Hct 23.7 L (37.5-50.1) % Plt Count 253 (140-400) K/mcL Neutrophils # 2.7 (1.6-8.9) K/mcL BMP 04/01/17 05:26 Sodium 142 Potassium 3.6 Chloride 113 H Carbon Dioxide 23 BUN 14 Creatinine 1.00 Glucose 103 H Calcium 8.0 L - ABG Interpretation ABG results: PT/INR, D-dimer PT 11.8 Seconds (9.4-12.1) 03/30/17 15:58 Consult Discharge Plan - Plan Referrals: [facility] [Outside] - 04/15/17 10:15 am
[2017-04-01] MEDS: Divalproex (24 HR) 500 MG TABLET PO SCH (20:22)
[2017-04-01] MEDS: Mirtazapine 15 MG TABLET PO SCH (20:22)
[2017-04-02] MEDS: Pantoprazole 40 MG in 0.9 % Sodium Chloride Mini Bag 100 ML IVC SCH ×2 (02:05→09:00)
[2017-04-02] MEDS: 0.9 % Sodium Chloride 1,000 ML IVC SCH (02:05)
[2017-04-02] MEDS ORDERED: *HR* FentaNYL (PF) 100 MCG/2 ML VIAL ONE (07:06)
[2017-04-02] MEDS ORDERED: *HR* Midazolam HCl 5 MG/5 ML VIAL IVP ONE (07:06)
[2017-04-02] MEDS ORDERED: Simethicone 40 MG/0.6 ML MLS IR ONE (07:09)
[2017-04-02] MEDS ORDERED: 0.9 % Sodium Chloride 1,000 ML IVC SCH (07:15)
[2017-04-02] MEDS: *HR* FentaNYL (PF) 100 MCG/2 ML VIAL IVP PRN ×4 (07:24→07:47)
[2017-04-02] MEDS: *HR* Midazolam HCl 5 MG/5 ML VIAL IVP PRN ×4 (07:26→07:47)
[2017-04-02] MEDS: Multivit/Ca/Min/Fe/FA 1 TAB TABLET PO SCH (08:41)
[2017-04-02 09:02] LABS: Basophils % 0.2 %; Eosinophils # 0.1 K/mcL (0.0-0.6); Eosinophils % 3.2 %; Hematocrit 22.8 % (37.5-50.1); Hemoglobin 7.6 g/dL (12.9-16.9); Immature Granulocytes % 0.5 % (0-4); Lymphocytes # 1.1 K/mcL (0.6-4.6); Lymphocytes % 25.1 %; Mean Corpuscular HGB Conc 33.3 g/dL (31.6-35.5); Mean Corpuscular Hemoglobin 32.6 pg (28.0-33.3); Mean Corpuscular Volume 97.9 fL (83.0-100.0); Mean Platelet Volume 10.4 fL (9.4-12.4); Monocytes # 0.5 K/mcL (0.0-1.3); Monocytes % 10.5 %; Neutrophils # 2.7 K/mcL (1.6-8.9); Platelet Count 261 K/mcL (140-400); Red Blood Count 2.33 M/mcL (4.19-5.50); Segmented Neutrophils % 60.5 %
--- NOTE | 2017-04-02 11:01 | Internal Med Progress Note ---
Date of Encounter: 04/02/17 Time of Encounter: 11:00 - Assessment and plan (1) GI bleed Current Visit: Yes Status: Acute Assessment and plan: 04/02/2017: EGD and colonoscopy done. EGD with no evidence of bleeding. Gastritis was biopsied. Follow-up pathology report with gastroenterology outpatient. 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 Successful hemostasis was obtained. There was blood present throughout the entire colon. Patient is on a clear liquid diet. We will advance to full liquid diet and continue to monitor. 04/01/2017: Pending upper endoscopy today. Continue nothing by mouth. IV fluids. Appreciate GI recommendations. Continue with IV Protonix. Plan for EGD tomorrow. Nothing by mouth after midnight. Qualifiers: GI bleed type/associated pathology: unspecified gastrointestinal hemorrhage type Qualified Code(s): K92.2 - Gastrointestinal hemorrhage, unspecified (2) Hypertension Current Visit: No Status: Acute Assessment and plan: Continue his oral meds per home medication regimen. Qualifiers: Hypertension type: essential hypertension Qualified Code(s): I10 - Essential (primary) hypertension (3) Blood loss anemia Current Visit: No Status: Acute Assessment and plan: 04/02/2017: Hemoglobin has decreased down to 7.7 will check hemoglobin every 12 hours and transfuse at its below 7.0. Given chronic lung loss I suspect secondary iron deficiency. I have reviewed the blood work from a previous visit and in December iron and percent saturation was low. I will give 400 mg of iron sucrose IV. 04/01/2017: Hemoglobin 8.1 today from 8.5 yesterday. We will continue to trend. Transfuse if below 8. 03/31/2017: Hemoglobin increased to 8.5 which is is an inappropriate response, likely patient is still slowly bleeding. We will monitor hemoglobin and hematocrit and transfuse if below 8. - Subjective Interval history: 04/02/2017: Patient reports no further melena. He had EGD done yesterday which showed just plain gastritis. He had colonoscopy which showed a bleeding AVM and the terminal ileum. There was blood present throughout the entire colon. He denies abdominal pain nausea or vomiting. 04/01/2017: Patient reports no abdominal pain nausea or vomiting. Denies any further melena. 03/31/2017: Patient presented to the hospital with melena and associated weakness. He states that his weakness has improved over the last 24 hours. He received 1 unit of blood transfusion. Denies hematemesis and chest pain. - Constitutional Vitals: Temp Pulse Resp BP Pulse Ox 97.7 F 71 16 110/70 100 04/02/17 08:45 04/02/17 08:45 04/02/17 08:45 04/02/17 08:45 04/02/17 08:45 General appearance: Present: A&O X 3 - Eye Eye exam: Present: PERRL, conjuntiva pink, sclera anicteric Pupils: Present: PERRL - Respiratory Respiratory exam: Present: CTAB. Absent: accessory muscle use, rales, rhonchi, wheezes - Cardiovascular Cardiovascular exam: Present: RRR, +S1, +S2. Absent: diastolic murmur, gallop, rubs, systolic murmur - GI/Abdominal GI/Abdominal exam: Present: normal bowel sounds, soft, no peritoneal signs. Absent: distended, tenderness - Extremities Exam Extremities exam: Present: warm, radial pulses palpable and symetrical. Absent : calf tenderness, cyanotic, pedal edema - Skin Skin exam: Present: dry, intact Internal Medicine: Result - Labs CBC & Chem 7: 04/02/17 13:38 04/01/17 05:26 Labs: Short CBC 04/02/17 Range/Units 08:55 WBC 4.4 (4.3-11.1) K/mcL Hgb 7.6 L (12.9-16.9) g/dL Hct 22.8 L (37.5-50.1) % Plt Count 261 (140-400) K/mcL Neutrophils # 2.7 (1.6-8.9) K/mcL - ABG Interpretation ABG results: PT/INR, D-dimer PT 11.8 Seconds (9.4-12.1) 03/30/17 15:58 - VTE Documentation of Mechanical Device: Intermittent pneumatic compression device Consult Discharge Plan - Plan Referrals: [facility] [Outside] - 04/15/17 10:15 am
[2017-04-02 13:48] LABS: Hematocrit 22.9 % (37.5-50.1); Hemoglobin 7.7 g/dL (12.9-16.9)
[2017-04-02] MEDS ORDERED: Iron Sucrose Complex 400 MG in 0.9 % Sodium Chloride 250 ML IVPB ONE (16:44)
[2017-04-02] MEDS: Mirtazapine 15 MG TABLET PO SCH (21:29)
[2017-04-02] MEDS: Divalproex (24 HR) 500 MG TABLET PO SCH (21:30)
[2017-04-03 04:02] LABS: Basophils % 0.2 %; Eosinophils # 0.2 K/mcL (0.0-0.6); Eosinophils % 3.2 %; Hematocrit 22.1 % (37.5-50.1); Hemoglobin 7.6 g/dL (12.9-16.9); Immature Granulocytes % 0.6 % (0-4); Lymphocytes # 1.2 K/mcL (0.6-4.6); Lymphocytes % 22.5 %; Mean Corpuscular HGB Conc 34.4 g/dL (31.6-35.5); Mean Corpuscular Hemoglobin 32.9 pg (28.0-33.3); Mean Corpuscular Volume 95.7 fL (83.0-100.0); Mean Platelet Volume 10.7 fL (9.4-12.4); Monocytes # 0.6 K/mcL (0.0-1.3); Monocytes % 11.2 %; Neutrophils # 3.4 K/mcL (1.6-8.9); Platelet Count 268 K/mcL (140-400); Red Blood Count 2.31 M/mcL (4.19-5.50); Red Cell Distribution Width 17.3 % (11.5-14.5); Segmented Neutrophils % 62.3 %
[2017-04-03 04:17] LABS: BUN/Creatinine Ratio 4 (6-26); Calcium 8.3 mg/dL (8.6-10.8); Carbon Dioxide 24 mEq/L (19-29); Chloride 112 mEq/L (98-109); Glucose 97 mg/dL (70-99); Osmolality,Calculated 289 (280-300); Potassium 3.4 mEq/L (3.5-4.5); Sodium 141 mEq/L (136-145); eGFR For African Americans > 60 (> 60); eGFR For Non-African Americans > 60 (> 60)
[2017-04-03 04:26] LABS: Blood Urea Nitrogen 4 mg/dL (8-26)
[2017-04-03] MEDS: Multivit/Ca/Min/Fe/FA 1 TAB TABLET PO SCH (08:25)
[2017-04-03] MEDS: traMADol 50 MG TABLET PO PRN ×2 (10:52→19:48)
--- NOTE | 2017-04-03 12:38 | Internal Med Progress Note ---
Date of Encounter: 04/03/17 Time of Encounter: 10:00 - Assessment and plan (1) GI bleed Current Visit: Yes Status: Acute Assessment and plan: EGD and colonoscopy done. EGD with no evidence of bleeding. Gastritis was biopsied. Follow-up pathology report with gastroenterology outpatient. 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 Successful hemostasis was obtained. There was blood present throughout the entire colon. We will advance to regular diet today. Given 1 unit PRBC because hemoglobin is still low and patient has risk of rebleeding. Qualifiers: GI bleed type/associated pathology: unspecified gastrointestinal hemorrhage type Qualified Code(s): K92.2 - Gastrointestinal hemorrhage, unspecified (2) Hypertension Current Visit: No Status: Acute Assessment and plan: Continue his oral meds per home medication regimen. Qualifiers: Hypertension type: essential hypertension Qualified Code(s): I10 - Essential (primary) hypertension (3) Blood loss anemia Current Visit: No Status: Acute Assessment and plan: Hgb 7.6 today. Will give another unit of PRBC. Patient will discharge on Iron pill (4) DVT prophylaxis Current Visit: No Status: Acute Assessment and plan: EPCD - Time Spent With Patient 25 - 35 minutes - Subjective Interval history: Patient is a 67-year-old male admitted for GI bleeding. His past medical history significant for hypertension, previous GI bleeding. I saw and examined the patient today. He is awake alert. Compliant mild left lower quadrant pain, no rebound on exam. Vitals are stable. Hemoglobin is stable from yesterday but at the lower side at 7.6. We will give patient 1 more unit of PRBC because he has risk of rebleeding. - Constitutional Vitals: Temp Pulse Resp BP Pulse Ox 98.2 F 75 18 122/73 97 04/03/17 10:49 04/03/17 10:49 04/03/17 10:49 04/03/17 10:49 04/03/17 10:49 General appearance: Present: A&O X 3, no acute distress, answers questions appropriately - Head Head exam: Present: atraumatic, normocephalic - Eye Eye exam: Present: PERRL, conjuntiva pink, sclera anicteric Pupils: Present: PERRL - Neck Neck exam general surgery: Present: supple, trachea midline. Absent: lymphadenopathy - Respiratory Respiratory exam: Present: CTAB. Absent: accessory muscle use, rales, rhonchi, wheezes - Cardiovascular Cardiovascular exam: Present: RRR, +S1, +S2. Absent: diastolic murmur, gallop, rubs, systolic murmur - GI/Abdominal GI/Abdominal exam: Present: normal bowel sounds, soft, tenderness (Mild tenderness on left lower quadrant, no rebound or guarding), no peritoneal signs. Absent: distended - Extremities Exam Extremities exam: Present: warm, radial pulses palpable and symetrical. Absent : calf tenderness, cyanotic, pedal edema - Neurological Exam Neurological exam: Present: CN II-XII intact, oriented X3, no focal deficits. Absent: pronater drift, facial droop, speech deficit - Skin Skin exam: Present: dry, intact Internal Medicine: Result - Labs CBC & Chem 7: 04/03/17 03:38 04/03/17 03:38 Labs: Short CBC 04/02/17 04/03/17 Range/Units 13:38 03:38 WBC 5.4 (4.3-11.1) K/mcL Hgb 7.7 L 7.6 L (12.9-16.9) g/dL Hct 22.9 L 22.1 L (37.5-50.1) % Plt Count 268 (140-400) K/mcL Neutrophils # 3.4 (1.6-8.9) K/mcL BMP 04/03/17 03:38 Sodium 141 Potassium 3.4 L Chloride 112 H Carbon Dioxide 24 BUN 4 L D Creatinine 0.92 Glucose 97 Calcium 8.3 L - ABG Interpretation ABG results: PT/INR, D-dimer PT 11.8 Seconds (9.4-12.1) 03/30/17 15:58 - VTE Documentation of Mechanical Device: Intermittent pneumatic compression device Consult Discharge Plan - Plan Referrals: [facility] [Outside] - 04/15/17 10:15 am
[2017-04-03] MEDS ORDERED: 0.9 % Sodium Chloride 250 ML ONE (13:55)
[2017-04-03 17:42] LABS: Hematocrit 27.9 % (37.5-50.1); Hemoglobin 9.2 g/dL (12.9-16.9)
[2017-04-03] MEDS: Divalproex (24 HR) 500 MG TABLET PO SCH (19:47)
[2017-04-03] MEDS: Mirtazapine 15 MG TABLET PO SCH (19:48)
[2017-04-04 04:57] LABS: Basophils % 0.3 %; Eosinophils # 0.2 K/mcL (0.0-0.6); Eosinophils % 3.4 %; Hemoglobin 8.8 g/dL (12.9-16.9); Immature Granulocytes % 0.8 % (0-4); Lymphocytes # 2.2 K/mcL (0.6-4.6); Mean Corpuscular HGB Conc 33.8 g/dL (31.6-35.5); Mean Corpuscular Hemoglobin 32.2 pg (28.0-33.3); Mean Corpuscular Volume 95.2 fL (83.0-100.0); Mean Platelet Volume 11.1 fL (9.4-12.4); Monocytes # 0.7 K/mcL (0.0-1.3); Monocytes % 10.3 %; Neutrophils # 3.3 K/mcL (1.6-8.9); Nucleated Red Blood Cells 0.3 /100 WBC (0); Platelet Count 281 K/mcL (140-400); Red Blood Count 2.73 M/mcL (4.19-5.50); Red Cell Distribution Width 18.2 % (11.5-14.5); Segmented Neutrophils % 51.2 %
[2017-04-04 05:16] LABS: BUN/Creatinine Ratio 5 (6-26); Blood Urea Nitrogen 5 mg/dL (8-26); Calcium 8.4 mg/dL (8.6-10.8); Carbon Dioxide 26 mEq/L (19-29); Chloride 111 mEq/L (98-109); Glucose 96 mg/dL (70-99); Osmolality,Calculated 291 (280-300); Potassium 3.7 mEq/L (3.5-4.5); Sodium 142 mEq/L (136-145); eGFR For African Americans > 60 (> 60); eGFR For Non-African Americans > 60 (> 60)
[2017-04-04 06:55] VITALS: BP 144/77
[2017-04-04] MEDS: Multivit/Ca/Min/Fe/FA 1 TAB TABLET PO SCH (08:20)
--- NOTE | 2017-04-04 10:01 | Discharge Summary ---
Date of Encounter: 04/04/17 Time of Encounter: 10:00 - Discharge Diagnosis (1) GI bleed Priority: Primary Status: Acute Qualifiers: GI bleed type/associated pathology: unspecified gastrointestinal hemorrhage type Qualified Code(s): K92.2 - Gastrointestinal hemorrhage, unspecified (2) Hypertension Priority: Secondary Status: Acute Qualifiers: Hypertension type: essential hypertension Qualified Code(s): I10 - Essential (primary) hypertension (3) Blood loss anemia Priority: Primary Status: Acute (4) DVT prophylaxis Priority: Secondary Status: Acute - Discharge Medications Home Medications: Divalproex (24 HR) [Depakote ER (24 HR)] 1,500 mg PO HS 04/07/16 [History] Prazosin HCl [Minipress] 2 mg PO HS 04/07/16 [History] Sildenafil Citrate [Viagra] 50 mg PO DAILY PRN 08/25/16 [History] Cholecalciferol (D-3) [Vitamin D] 4,000 unit PO DAILY 12/15/16 [History] Mirtazapine [Remeron] 30 mg PO HS 12/15/16 [History] Multivitamin [Multi-Day Vitamins] 1 each PO DAILY 12/15/16 [History] Triamcinolone Acet 0.1% CRM [Kenalog] 1 appl TP BID PRN 12/15/16 [History] Allergies/Adverse Reactions: Allergies acetaminophen [From Tylenol] Allergy (Verified 08/25/16 09:02) Hives atenolol Allergy (Verified 08/25/16 09:02) Gastrointestinal Upset bisacodyl Allergy (Verified 08/25/16 09:02) Gastrointestinal Upset Date of admission: 03/30/17 19:27 Primary care physician: PCP [place] Consults: 03/30/17 21:35 Consult to Gastroenterology [CONS] Routine Consulting Provider: Gastroenterology Alivia Reason for Consult: Recurrent GI bleed Call Completed: No 04/01/17 09:13 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 Hartley is a 67 year old male with past medical history acute blood loss anemia recurrent GI bleed and hypertension who presented to the [facility] on 03/30/2017 with complaints of dark black and bright red stool for the past 3 days. He was transferred to [facility] for GI evaluation and further workup and treatment. Information obtained from patient and chart review. Patient reports that for the last 3 days he has had intermittent black tarry stools alternating with episodes of bright red blood. He denies NSAID, prednisone, anticoagulation use. Says he has had extensive GI workup in the past and noted bleeding has been found. On my exam he is hungry, complains of excessive gas but otherwise has no complaints. No abdominal pain. No nausea vomiting diarrhea. No chest pain. Hospital course: Mr. Hartley is a 67 year old male admitted for GI bleeding. Patient was given PRBC transfusion. GI consult was called, EGD and colonoscopy have been done. Patient was found angioectasia on colonoscopy,coagulation done by GI. After treatment, patient's hemoglobin is stable. he had another unit of blood transfusion because hemoglobin at the lower side. His diet advanced to regular diet, he tolerated well. Patient is ready to discharge home and follow-up as outpatient. Patient was seen and examined. He is awake alert, oriented 3, no pain or discomfort. Vitals are stable. Patient is stable to discharge home. - Time Spent with Patient Total time spent providing and/or coordinating discharge services:25 minutes Less than 30 minutes - Constitutional Vitals: Temp Pulse Resp BP Pulse Ox 98.1 F 72 16 144/77 97 04/04/17 06:54 04/04/17 06:54 04/04/17 06:54 04/04/17 06:54 04/04/17 06:54 General appearance: Present: A&O X 3, no acute distress, answers questions appropriately - Head Head exam: Present: atraumatic, normocephalic - Eye Eye exam: Present: PERRL, conjuntiva pink, sclera anicteric Pupils: Present: PERRL - Neck Neck exam general surgery: Present: supple, trachea midline. Absent: lymphadenopathy - Respiratory Respiratory exam: Present: CTAB. Absent: accessory muscle use, rales, rhonchi, wheezes - Cardiovascular Cardiovascular exam: Present: RRR, +S1, +S2. Absent: diastolic murmur, gallop, rubs, systolic murmur - GI/Abdominal GI/Abdominal exam: Present: normal bowel sounds, soft, no peritoneal signs. Absent: distended, tenderness - Extremities Exam Extremities exam: Present: warm, radial pulses palpable and symetrical. Absent : calf tenderness, cyanotic, pedal edema - Neurological Exam Neurological exam: Present: CN II-XII intact, oriented X3, no focal deficits. Absent: pronater drift, facial droop, speech deficit - Skin Skin exam: Present: dry, intact - VTE Documentation of Mechanical Device: Intermittent pneumatic compression device
--- NOTE | 2017-04-06 17:12 | Electrocardiograph Report ---
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
== END 2017-04-04 11:03 | disposition home or self-care (01) | DRG 378 ==
LOC: 3ANU 14:25 → EMEROO 14:25 → SUATTDRO 19:27 → 3ANU 20:13
PROVIDERS: ADMIT Internal Medicine; ATTEND Internal Medicine
PROC: ENDOEBX (2017-04-01 14:00)
PROC: ENDOCCB (2017-04-02 07:15)

== ENCOUNTER 2018-03-03 09:06 | Observation (INO) ==
[2018-03-03 09:45] LABS: Basophils # 0.1 K/mcL (0.0-0.2); Basophils % 0.5 %; Eosinophils # 0.1 K/mcL (0.0-0.6); Eosinophils % 1.2 %; Hematocrit 50.7 % (37.5-50.1); Hemoglobin 17.5 g/dL (12.9-16.9); Immature Granulocytes % 1.2 % (0-4); Lymphocytes # 1.7 K/mcL (0.6-4.6); Lymphocytes % 18.1 %; Mean Corpuscular HGB Conc 34.5 g/dL (31.6-35.5); Mean Corpuscular Hemoglobin 34.9 pg (28.0-33.3); Mean Corpuscular Volume 101.2 fL (83.0-100.0); Mean Platelet Volume 10.9 fL (9.4-12.4); Monocytes # 1.1 K/mcL (0.0-1.3); Monocytes % 12.1 %; Neutrophils # 6.1 K/mcL (1.6-8.9); Platelet Count 355 K/mcL (140-400); Red Blood Count 5.01 M/mcL (4.19-5.50); Red Cell Distribution Width 13.6 % (11.5-14.5); Segmented Neutrophils % 66.9 %
[2018-03-03] MEDS: 0.9 % Sodium Chloride 500 ML IVC SCH (09:50)
[2018-03-03 09:51] LABS: Prothrombin Time 11.2 Seconds (9.4-12.1)
--- NOTE | 2018-03-03 14:23 | Pre-Sedation Evaluation ---
Pre-sedation evaluation - Pre-sedation checklist Date of procedure: 03/03/18 Procedure: R lung biopsy Recent Vitals: Last Vital Signs Temp 97.5 F L 03/03/18 09:30 Pulse 85 03/03/18 14:03 Resp 10 03/03/18 14:03 BP 124/82 03/03/18 14:03 Pulse Ox 10 03/03/18 14:03 H&P (including ROS) documented in medical record: Yes Previous reaction to sedatives/anesthetics: No Dietary Status: NPO after Midnight Airway Assessment: Patient can open mouth completely, TMJ function normal, Micrognathia (under-bite, receding chin) absent, Neck with adequate range of motion Dentition: dentures removed Possible difficult airway: No ASA Classification *see protocol: CLASS III-Severe systemic disease Plan of Care: Pt appropriate candidate for procedure/moderate/conscious sedation , Risks/benefits of procedure/sedation discussed w/ patient/family, If not NPO; Risk of intake outweiged by necessity to perform procedure
--- NOTE | 2018-03-03 14:24 | History & Physical Report ---
Date of Encounter: 03/03/18 Time of Encounter: 13:30 24 Hour HP Update - Instructions Instructions: If the History and Physical is less than 30 days old and was completed prior to A.M. admission and or procedure and has NOT been updated on calendar day of procedure please complete this update prior to performing procedure. - Update Patient reports changes in Medical Condition: No Changes in examination, assessment, or condition: No Changes in Medication: No Preop tests/diagnostics Reviewed: Yes Surgery Remains Indicated: Yes Consent for Planned Operative Procedure(s) Verified: Yes - Pre-Operative Checklist Preoperative Checklist Indicated: Yes Prophylactic Antibiotic Ordered: No Home Medications Include Beta Angelika: No Is VTE Prophylaxis Indicated?: NO
[2018-03-03] MEDS ORDERED: *HR* FentaNYL (PF) 100 MCG/2 ML VIAL ONE (14:28)
--- NOTE | 2018-03-03 14:30 | IR Procedure Note ---
Date of procedure: 03/03/18 Consent Obtained: Written consent Timeout: Correct patient and procedure verified, Correct site verified, Time out performed, Skin prep completed Local anesthetic: Lidocaine 1% Indications: RLL pulmonary nodule Procedure Performed: Right lung biopsy, chest tube placement Was there an chiropractor assistant present: No Site/Technique: RLL nodule, bx'd and lesional material obtained. Results/Findings: Small ptx after bx. 10fr drain placed. Will try to remove tomorrow if able Estimated blood loss (cc): 1 Complications: None; Tolerated procedure well Post Procedure Treatment Plan: Will have watched overnight. Appreciate hospitalist's assitance. Specimen: To path
[2018-03-03] MEDS ORDERED: *HR* FentaNYL (PF) 100 MCG/2 ML VIAL IVP ONE (14:50)
[2018-03-03] MEDS ORDERED: *HR* OxyCODONE Immed Rel 5 MG TABLET PO PRN (15:16)
[2018-03-03] MEDS ORDERED: NON-FORMULARY MEDICATION 1 EACH EACH (Sildenafil Citrate [Viagra] 50 MG) PO PRN (17:20)
[2018-03-03] MEDS ORDERED: Triamcinolone Acet 0.1% CRM 15 GM TUBE TP PRN (17:20)
[2018-03-03] MEDS ORDERED: Naloxone 0.4 MG/ML INJ IVP PRN (17:22)
[2018-03-03] MEDS ORDERED: Acetaminophen 325 MG TABLET PO PRN (17:22)
--- NOTE | 2018-03-03 17:29 | Internal Med History&Physical ---
<Rohit Galvez - Last Filed: 03/03/18 17:26> Date of Encounter: 03/03/18 Time of Encounter: 17:26 Internal Medicine - H&P: HPI Admitted From: Home Plans for Post Hospital Care: Home History of present illness: Mr. Hartley is a 67 year old male with history of smoking, COPD, and a lung nodule who underwent lung nodule biopsy by interventional radiology today. A small pneumothorax was found on chest x-ray after the procedure, a chest tube was placed subsequently by IR. Hospitalist service was requested to help manage the patient. On arrival to the floor, his vital signs were stable, labs unremarkable. However she did complain severe right chest pain. She denies fever, chills, or night sweats. She has no shortness of breath, hemoptysis, or syncope. Past Med Surg Social Fam HX - Past Medical History Medical history: arthritis, GERD, hypertension, other Psychiatric history: depression, previous psychiatric hospitalization, other - Past Surgical History Surgical History: other - Social History Smoking Status: Current every day smoker Smokeless Tobacco Status: No Alcohol use: rarely Drug use: none - Family History Brother Hx Family Endocrine Disorder: Yes Sister Adopted: No Living Status: Still Living Hx Family Endocrine Disorder: Yes Internal Medicine - H&P: Meds Divalproex (24 HR) [Depakote ER (24 HR)] 1,500 mg PO HS 04/07/16 [History] Prazosin HCl [Minipress] 2 mg PO HS 04/07/16 [History] Sildenafil Citrate [Viagra] 50 mg PO DAILY PRN 08/25/16 [History] Cholecalciferol (D-3) [Vitamin D] 4,000 unit PO DAILY 12/15/16 [History] Mirtazapine [Remeron] 30 mg PO HS 12/15/16 [History] Multivitamin [Multi-Day Vitamins] 1 each PO DAILY 12/15/16 [History] Triamcinolone Acet 0.1% CRM [Kenalog] 1 appl TP BID PRN 12/15/16 [History] 3 Allergy/AdvReac Type Severity Reaction Status Date / Time acetaminophen [From Tylenol] Allergy Hives Verified 08/25/16 09:02 atenolol Allergy Gastrointestinal Verified 08/25/16 09:02 Upset bisacodyl Allergy Gastrointestinal Verified 08/25/16 09:02 Upset All Systems PM: A 10-system review of systems was performed and is negative for pertinent findings except as documented above in the HPI. Review of systems: REVIEW OF SYSTEMS: CONSTITUTIONAL: No weight loss, fever, chills, weakness or fatigue. HEENT: Eyes: No visual loss, blurred vision, double vision or yellow sclerae. Ears, Nose, Throat: No hearing loss, sneezing, congestion, runny nose or sore throat. SKIN: No rash or itching. CARDIOVASCULAR: No chest pain, chest pressure or chest discomfort. No palpitations or edema. RESPIRATORY: No shortness of breath, cough or sputum. GASTROINTESTINAL: No anorexia, nausea, vomiting or diarrhea. No abdominal pain or blood. GENITOURINARY: No dysuria, urgency, or frequency. NEUROLOGICAL: No headache, dizziness, syncope, paralysis, ataxia, numbness or tingling in the extremities. No change in bowel or bladder control. MUSCULOSKELETAL: No muscle, back pain, joint pain or stiffness. HEMATOLOGIC: No anemia, bleeding or bruising. LYMPHATICS: No enlarged nodes. No history of splenectomy. PSYCHIATRIC: No history of depression or anxiety. ENDOCRINOLOGIC: No reports of sweating, cold or heat intolerance. No polyuria or polydipsia. - Constitutional Vitals: Temp Pulse Resp BP Pulse Ox 97.6 F 79 18 136/92 95 03/03/18 15:26 03/03/18 15:26 03/03/18 15:26 03/03/18 15:26 03/03/18 15:26 General appearance: Present: A&O X 3 Exam: PHYSICAL EXAMINATION: GENERAL APPEARANCE: The patient is alert, oriented and in no acute distress. HEENT: Head is normocephalic. The sinuses are nontender. Pupils are equal and reactive. The nares are patent. Oropharynx clear without lesions. NECK: Supple without lymphadenopathy. HEART: Regular rate and rhythm. LUNGS: No crackles or wheezes are heard. ABDOMEN: Soft, nontender, nondistended with good bowel sounds heard. Inguinal area is normal. EXTREMITIES: Without cyanosis, clubbing or edema. NEUROLOGICAL: Gross nonfocal. SKIN: Warm and dry without any rash. Internal Med - H&P Results - Labs CBC & Chem 7: 03/03/18 09:30 Labs: Short CBC 03/03/18 Range/Units 09:30 WBC 9.1 (4.3-11.1) K/mcL Hgb 17.5 H (12.9-16.9) g/dL Hct 50.7 H (37.5-50.1) % Plt Count 355 (140-400) K/mcL Neutrophils # 6.1 (1.6-8.9) K/mcL - Impressions ITS Impressions Lung Biopsy CT 03/03/18 00:00 IMPRESSION: Successful CT guided core biopsy of a small right lower lobe pulmonary nodule. Lesional material was obtained. D/ / Guille Cantor MD / Guille Cantor MD Interpreting Provider: Guille Cantor MD - Assessment and plan (1) Hypertension Current Visit: No Status: Acute Assessment and plan: - BP well controlled right now, continue current medications. Qualifiers: Hypertension type: essential hypertension Qualified Code(s): I10 - Essential (primary) hypertension (2) Mood disorder Current Visit: No Status: Chronic Assessment and plan: - Mood stable, continue home medication. (3) Lung nodule Current Visit: No Status: Chronic Assessment and plan: - Same as above. (4) COPD (chronic obstructive pulmonary disease) Current Visit: No Status: Chronic Assessment and plan: - Stable, continue home medication. Qualifiers: COPD type: unspecified COPD Qualified Code(s): J44.9 - Chronic obstructive pulmonary disease, unspecified (5) Pneumothorax, right Current Visit: Yes Status: Acute Assessment and plan: - Small right pneumothorax revealed on chest x-ray of after right lung nodule biopsy. The chest tube was placed by IR. - Positive respiratory sound on the right side on physical exam. IR is planning to DC chest tube in a.m. - Positive care and pain control, telemetry monitoring. - Time Spent With Patient Total time spent is greater than 50% in coordination of care (as documented) at patient's floor/unit and/or counseling patient: Greater than 35 minutes <Christina Valentino - Last Filed: 03/03/18 18:15> Date of Encounter: 03/03/18 Internal Medicine - H&P: HPI History of present illness: Mr. Hartley is a 67 year old male All Systems PM: A 10-system review of systems was performed and is negative for pertinent findings except as documented above in the HPI. - Constitutional Vitals: Temp Pulse Resp BP Pulse Ox 97.6 F 79 18 136/92 95 03/03/18 15:26 03/03/18 15:26 03/03/18 15:26 03/03/18 15:26 03/03/18 15:26 Internal Med - H&P Results - Labs CBC & Chem 7: 03/03/18 09:30 Labs: Short CBC 03/03/18 Range/Units 09:30 WBC 9.1 (4.3-11.1) K/mcL Hgb 17.5 H (12.9-16.9) g/dL Hct 50.7 H (37.5-50.1) % Plt Count 355 (140-400) K/mcL Neutrophils # 6.1 (1.6-8.9) K/mcL - Impressions ITS Impressions Lung Biopsy CT 03/03/18 00:00 IMPRESSION: Successful CT guided core biopsy of a small right lower lobe pulmonary nodule. Lesional material was obtained. D/ / Guille Cantor MD / Guille Cantor MD Interpreting Provider: Guille Cantor MD - Attending Attestation Examined the patient and review of the note agreed with plan of care. Patient is still in severe right chest pain and fentanyl not helping at all. Dilaudid 1 mg IV every 4 hours when necessary is started. Chest x-rays plan in the morning. Continue pulse ox with oxygen supplementation as needed. At this time patient is not in respiratory distress but in severe pain radiating 9 /10. Chest tube in place. Will also perform chest x-ray now. - Assessment and plan (1) Hypertension Current Visit: No Status: Acute Qualifiers: Hypertension type: essential hypertension Qualified Code(s): I10 - Essential (primary) hypertension (2) Mood disorder Current Visit: No Status: Chronic (3) Lung nodule Current Visit: No Status: Chronic (4) COPD (chronic obstructive pulmonary disease) Current Visit: No Status: Chronic Qualifiers: COPD type: unspecified COPD Qualified Code(s): J44.9 - Chronic obstructive pulmonary disease, unspecified (5) Pneumothorax, right Current Visit: Yes Status: Acute - Time Spent With Patient Total time spent is greater than 50% in coordination of care (as documented) at patient's floor/unit and/or counseling patient:
[2018-03-03] MEDS: *HR* FentaNYL (PF) 100 MCG/2 ML VIAL IVP PRN ×2 (17:52→20:43)
[2018-03-03] MEDS ORDERED: *HR* HYDROmorphone (PF) 1 MG/ML SYRINGE IVP PRN (18:07)
[2018-03-03] MEDS: Mirtazapine 15 MG TABLET PO SCH (20:42)
[2018-03-03] MEDS: Divalproex (24 HR) 500 MG TABLET PO SCH (20:42)
[2018-03-04] MEDS: *HR* OxyCODONE Immed Rel 5 MG TABLET PO PRN ×2 (00:29→20:42)
[2018-03-04] MEDS: *HR* FentaNYL (PF) 100 MCG/2 ML VIAL IVP PRN ×2 (01:22→10:34)
[2018-03-04 06:12] LABS: Alanine Aminotransferase 134 Units/L (7-52); Albumin 3.4 g/dL (3.5-5.7); Albumin/Globulin Ratio 1.2 (1.1-2.2); Alkaline Phosphatase 98 Units/L (34-104); Aspartate Amino Transferase 83 Units/L (13-39); BUN/Creatinine Ratio 21 (6-26); Bilirubin,Total 0.6 mg/dL (0.3-1.0); Blood Urea Nitrogen 22 mg/dL (8-23); Calcium 9.3 mg/dL (8.6-10.3); Carbon Dioxide 27 mEq/L (23-29); Chloride 107 mEq/L (98-107); Globulin 2.8 g/dL (2.4-3.5); Glucose 136 mg/dL (70-105); Osmolality,Calculated 293 (280-300); Potassium 4.1 mEq/L (3.5-5.1); Sodium 139 mEq/L (136-145); Total Protein 6.2 g/dL (6.4-8.9); eGFR For African Americans > 60 (> 60); eGFR For Non-African Americans > 60 (> 60)
[2018-03-04] MEDS: 0.9 % Sodium Chloride 500 ML IVC SCH ×3 (07:42→10:43)
[2018-03-04] MEDS: Multivit/Ca/Min/Fe/FA 1 TAB TABLET PO SCH (10:35)
[2018-03-04] MEDS: Cholecalciferol (D-3) 1,000 UNIT TABLET PO SCH (10:35)
--- NOTE | 2018-03-04 11:39 | Pulmonology Consult Note ---
Date of Encounter: 03/04/18 Time of Encounter: 11:00 Assessment and Plan (1) Pneumothorax, right Current Visit: Yes Status: Acute I have discussed with interventional radiologist regarding management of the chest tube and chest tube was placed on water seal and then repeat x-ray was done and she was reviewed with the interventional radiologist and subsequently chest tube was removed and follow-up x-ray shows a small apical pneumothorax. Since patient is been having some chest discomfort I discussed with the primary team to have a follow-up chest x-ray in the morning and treat his underlying COPD with bronchodilators and keep his SPO2 around 90% and if remains stable then can be discharged home tomorrow. Thank you for the consultation. (2) COPD (chronic obstructive pulmonary disease) Current Visit: No Status: Chronic Qualifiers: COPD type: unspecified COPD Qualified Code(s): J44.9 - Chronic obstructive pulmonary disease, unspecified History of Present Illness Consult date: 03/04/18 Requesting physician: Ariel Reyna Reason for consult: pneumothorax Chief complaint: Pneumothorax History of present illness: This is pleasant 67-year-old male who was diagnosed with pneumothorax after biopsy of the lung and pulmonary consulted for chest tube management. Patient chest tube was just removed and he feels slightly better, however he continued to have chest discomfort and also he denies any fever or chills. He does have some cough with sputum production and some wheezing. Patient is been diagnosed with COPD and he has history of smoking. Past Med Surg Social Fam HX - Past Medical History Medical history: arthritis, GERD, hypertension, other Psychiatric history: depression, previous psychiatric hospitalization, other - Past Surgical History Surgical History: other - Social History Smoking Status: Current every day smoker Smokeless Tobacco Status: No Alcohol use: rarely Drug use: none - Family History Brother Hx Family Endocrine Disorder: Yes Sister Adopted: No Living Status: Still Living Hx Family Endocrine Disorder: Yes Medications and Allergies Albuterol Sulfate [Albuterol Inhaler] 2 puff IH Q4HR PRN 03/04/18 [History] Amlodipine Besylate 7.5 mg PO DAILY 03/04/18 [History] Budesonide/Formoterol 160/4.5 [Symbicort 160/4.5] 2 puff IH BIDR 03/04/18 [ History] Docusate [Colace] 100 mg PO DAILY PRN 03/04/18 [History] Doxycycline Monohydrate [Mondoxyne Nl] 100 mg PO BID 03/04/18 [History] Escitalopram [Lexapro] 10 mg PO DAILY 03/04/18 [History] Ferrous Gluconate 324 mg PO TID 03/04/18 [History] Fluticasone Propionate Nasal [Flonase] 2 spr NS DAILY PRN 03/04/18 [History] Ipratropium/Albuterol Neb [Duoneb] 3 ml IH Q6HR PRN 03/04/18 [History] Mirtazapine [Remeron] 30 mg PO HS 03/04/18 [History] Multivitamin [Multivitamins] 1 cap PO DAILY 03/04/18 [History] Nicotine Polacrilex [Nicotine Gum] 4 mg BC Q4H 03/04/18 [History] Pantoprazole Sodium [Protonix] 40 mg PO BID 03/04/18 [History] Prazosin HCl [Minipress] 2 mg PO HS 03/04/18 [History] Sildenafil Citrate [Viagra] 50 mg PO ONCE PRN 03/04/18 [History] hydroCHLOROthiazide [Hydrochlorothiazide] 25 mg PO DAILY 03/04/18 [History] 3 Allergy/AdvReac Type Severity Reaction Status Date / Time acetaminophen [From Tylenol] Allergy Hives Verified 03/04/18 13:56 hydrocodone [From Vicodin] Allergy Hives Verified 03/04/18 13:56 lorazepam [From Ativan] Allergy Hives Verified 03/04/18 13:56 Oxycodone [From Percocet] Allergy Hives Verified 03/04/18 13:56 atenolol AdvReac Gastrointestinal Verified 03/04/18 13:56 Upset bisacodyl AdvReac Gastrointestinal Verified 03/04/18 13:56 Upset All Systems: The remainder of the systems were reviewed and are negative Physical Examination Vital Signs: Vital Signs, Last 4 Hours Temp Pulse Resp BP Pulse Ox 03/04/18 10:49 97.7 F 80 16 160/82 97 General appearance: appears uncomfortable Eyes: nonicteric Neck: supple Effort: mildly labored Inspection: hyperextended Auscultation: bilateral: rhonchi Percussion: bilateral: not dull Cardiovascular: regular rate and rhythm Gastrointestinal: normoactive bowel sounds, non-distended Extremities: no cyanosis normal mental status, non-focal exam anxious Results - Laboratory Findings CBC and BMP: 03/03/18 09:30 03/04/18 05:25 PT/INR, D-dimer PT 11.2 Seconds (9.4-12.1) 03/03/18 09:30 Abnormal lab findings: Abnormal lab results Hgb 17.5 g/dL (12.9-16.9) H 03/03/18 09:30 Hct 50.7 % (37.5-50.1) H 03/03/18 09:30 MCV 101.2 fL (83.0-100.0) H 03/03/18 09:30 MCH 34.9 pg (28.0-33.3) H 03/03/18 09:30 Glucose 136 mg/dL (70-105) H 03/04/18 05:25 AST 83 Units/L (13-39) H 03/04/18 05:25 ALT 134 Units/L (7-52) H 03/04/18 05:25 Serum Total Protein 6.2 g/dL (6.4-8.9) L 03/04/18 05:25 Albumin 3.4 g/dL (3.5-5.7) L 03/04/18 05:25 - Diagnostic Findings Chest x-ray: report reviewed, image reviewed - Clinical Findings Intake & Output: Intake & Output 03/03/18 03/04/18 03/04/18 23:59 07:59 15:59 Output Total 450 / 450 Balance -450 / -450 Weight 92.9 kg Consult Discharge Plan - Plan Referrals: NONE,PCP [Non-Partnered Physician] -
[2018-03-04] MEDS ORDERED: *HR* FentaNYL (PF) 100 MCG/2 ML VIAL IVP PRN (13:25)
--- NOTE | 2018-03-04 18:11 | Internal Med Progress Note ---
Date of Encounter: 03/04/18 Time of Encounter: 10:00 - Assessment and plan (1) Pneumothorax, right Current Visit: Yes Status: Acute Assessment and plan: Small right pneumothorax revealed on chest x-ray of after right lung nodule biopsy. The chest tube was placed by IR and has been removed today Patient currently without any acute respiratory distress on room air Continue to monitor Pulmonology also following and appreciate recommendations (2) Lung nodule Current Visit: No Status: Chronic Assessment and plan: He is currently being evaluated for as an outpatient (3) Hypertension Current Visit: No Status: Acute Assessment and plan: Controlled; continue home medications. Qualifiers: Hypertension type: essential hypertension Qualified Code(s): I10 - Essential (primary) hypertension (4) Mood disorder Current Visit: No Status: Chronic Assessment and plan: Mood stable, continue home medication. (5) COPD (chronic obstructive pulmonary disease) Current Visit: No Status: Chronic Assessment and plan: Stable, continue home medication. Qualifiers: COPD type: unspecified COPD Qualified Code(s): J44.9 - Chronic obstructive pulmonary disease, unspecified (6) DVT prophylaxis Current Visit: No Status: Acute Assessment and plan: SCDs - Time Spent With Patient Total time spent is greater than 50% in coordination of care (as documented) at patient's floor/unit and/or counseling patient: - Subjective Interval history: Patient with chest pain earlier this morning secondary to chest tube placement Chest tube has since been removed and patient currently on room air per IR and pulmonology recommendations - Constitutional Vitals: Temp Pulse Resp BP Pulse Ox 98.5 F 100 17 127/80 97 03/04/18 15:41 03/04/18 15:41 03/04/18 15:41 03/04/18 15:41 03/04/18 15:41 General appearance: Present: A&O X 3 - Respiratory Respiratory exam: Present: CTAB. Absent: accessory muscle use, rales, rhonchi, wheezes - Cardiovascular Cardiovascular exam: Present: RRR, +S1, +S2. Absent: diastolic murmur, gallop, rubs, systolic murmur Internal Medicine: Result - Labs CBC & Chem 7: 03/03/18 09:30 03/04/18 05:25 Labs: BMP 03/04/18 05:25 Sodium 139 Potassium 4.1 Chloride 107 Carbon Dioxide 27 BUN 22 Creatinine 1.05 Glucose 136 H Calcium 9.3 Cardiac Enzymes 03/04/18 Range/Units 11:29 Troponin I < 0.03 (< 0.04) ng/mL Liver Function 03/04/18 Range/Units 05:25 Total Bilirubin 0.6 (0.3-1.0) mg/dL AST 83 H (13-39) Units/L ALT 134 H (7-52) Units/L Alkaline Phosphatase 98 (34-104) Units/L Albumin 3.4 L (3.5-5.7) g/dL - ABG Interpretation ABG results: PT/INR, D-dimer PT 11.2 Seconds (9.4-12.1) 03/03/18 09:30 - Impressions Impressions Chest X-Ray 03/03/18 18:13 IMPRESSION: 1. Trace right apical pneumothorax with a right-sided pigtail pleural catheter in place. 2. Mild left basilar airspace opacities compatible with atelectasis. D/ / Harris Skelton MD / Harris Skelton MD Interpreting Provider: Harris Skelton MD Chest X-Ray 03/04/18 12:00 IMPRESSION: Trace right apical pneumothorax appears similar to minimally worsened from prior exam. Right-sided chest tube remains in place. Worsened mild left basilar atelectasis and interval development of mild right basilar atelectasis. D/ / 03/04/2018 12:14:47 Alex Nieves MD / bridget Interpreting Provider: Alex Nieves MD Chest X-Ray 03/04/18 14:00 IMPRESSION: 1. Stable small right apical pneumothorax following removal of the right chest tube. 2. Stable bibasilar atelectasis versus pneumonia. 3. Faintly visualized, recently biopsied right lower lobe nodule. D/ / Jadon Dodson MD / Jadon Dodson MD Interpreting Provider: Jadon Dodson MD Consult Discharge Plan - Plan Referrals: NONE,PCP [Non-Partnered Physician] -
[2018-03-04] MEDS: Mirtazapine 15 MG TABLET PO SCH (20:38)
[2018-03-04] MEDS: Divalproex (24 HR) 500 MG TABLET PO SCH (20:38)
[2018-03-05 08:34] LABS: Basophils % 0.4 %; Eosinophils % 0.2 %; Hematocrit 45.3 % (37.5-50.1); Immature Granulocytes % 0.9 % (0-4); Lymphocytes # 2.3 K/mcL (0.6-4.6); Mean Corpuscular HGB Conc 35.3 g/dL (31.6-35.5); Mean Corpuscular Hemoglobin 35.5 pg (28.0-33.3); Mean Corpuscular Volume 100.4 fL (83.0-100.0); Mean Platelet Volume 10.9 fL (9.4-12.4); Monocytes # 1.7 K/mcL (0.0-1.3); Monocytes % 15.9 %; Neutrophils # 6.8 K/mcL (1.6-8.9); Platelet Count 304 K/mcL (140-400); Red Blood Count 4.51 M/mcL (4.19-5.50); Red Cell Distribution Width 13.6 % (11.5-14.5); Segmented Neutrophils % 61.6 %
[2018-03-05] MEDS: Multivit/Ca/Min/Fe/FA 1 TAB TABLET PO SCH (09:27)
[2018-03-05] MEDS: *HR* OxyCODONE Immed Rel 5 MG TABLET PO PRN (09:27)
[2018-03-05] MEDS: Cholecalciferol (D-3) 1,000 UNIT TABLET PO SCH (09:27)
[2018-03-05 09:33] LABS: BUN/Creatinine Ratio 14 (6-26); Blood Urea Nitrogen 17 mg/dL (8-23); Calcium 9.1 mg/dL (8.6-10.3); Carbon Dioxide 27 mEq/L (23-29); Chloride 103 mEq/L (98-107); Glucose 97 mg/dL (70-105); Osmolality,Calculated 281 (280-300); Potassium 4.5 mEq/L (3.5-5.1); Sodium 135 mEq/L (136-145); eGFR For African Americans > 60 (> 60); eGFR For Non-African Americans > 60 (> 60)
[2018-03-05 11:23] VITALS: BP 102/68
--- NOTE | 2018-03-05 11:54 | Pulmonology Progress Note ---
Date of Encounter: 03/05/18 Time of Encounter: 10:45 Assessment and Plan (1) Pneumothorax, right Current Visit: Yes Status: Acute Patient is stable and follow-up chest x-ray reviewed and that has been stable as well. Discussed with primary team and patient to be discharged home and follow-up as outpatient for his biopsy result and if he has any chest pain or shortness of breath more than his normal then needs to come to emergency room immediately to recheck for pneumothorax. Thank you for consultation. (2) COPD (chronic obstructive pulmonary disease) Current Visit: No Status: Chronic Qualifiers: COPD type: unspecified COPD Qualified Code(s): J44.9 - Chronic obstructive pulmonary disease, unspecified Subjective Principal diagnosis: Pneumothorax Interval history: Patient is stable and feeling better without shortness of breath or chest pain. Objective PUL Vital signs: Last Vital Signs Temp 97.9 F 03/05/18 11:22 Pulse 91 03/05/18 11:22 Resp 17 03/05/18 11:22 BP 102/68 03/05/18 11:22 Pulse Ox 98 03/05/18 11:22 General appearance: no acute distress ENT: oropharynx moist Neck: supple Effort: normal Auscultation: bilateral: diminished breath sounds Percussion: bilateral: not dull Cardiovascular: regular rate and rhythm Gastrointestinal: normoactive bowel sounds, non-distended Extremities: no cyanosis normal mental status, non-focal exam mood appropriate Results - Laboratory Findings CBC and BMP: 03/05/18 07:55 03/05/18 07:55 PT/INR, D-dimer PT 11.2 Seconds (9.4-12.1) 03/03/18 09:30 Abnormal lab findings: Abnormal lab results MCV 100.4 fL (83.0-100.0) H 03/05/18 07:55 MCH 35.5 pg (28.0-33.3) H 03/05/18 07:55 Monocytes # 1.7 K/mcL (0.0-1.3) H 03/05/18 07:55 Sodium 135 mEq/L (136-145) L 03/05/18 07:55 AST 83 Units/L (13-39) H 03/04/18 05:25 ALT 134 Units/L (7-52) H 03/04/18 05:25 Serum Total Protein 6.2 g/dL (6.4-8.9) L 03/04/18 05:25 Albumin 3.4 g/dL (3.5-5.7) L 03/04/18 05:25 - Diagnostic Findings Chest x-ray: report reviewed, image reviewed - Clinical Findings Intake & Output: Intake & Output 03/04/18 03/05/18 03/05/18 23:59 07:59 15:59 Intake Total 0 / 0 0 / 0 360 / 360 Output Total 300 / 300 Balance -300 / -300 0 / 0 360 / 360 Weight 91.081 kg Consult Discharge Plan - Plan Referrals: NONE,PCP [Non-Partnered Physician] -
--- NOTE | 2018-03-05 12:37 | Discharge Summary ---
- NOTES TO OUTPATIENT PROVIDER Notes to Outpatient Provider: Patient to follow-up with results of lung biopsy Orders not resulted at time of discharge: Pending orders 03/04/18 10:32 EKG [ECG 12 lead ECG] [ECG] Stat 03/04/18 17:56 EKG [ECG 12 lead ECG] [ECG] Stat Date of Encounter: 03/05/18 Time of Encounter: 10:00 - Discharge Diagnosis (1) Pneumothorax, right Priority: Primary Status: Acute (2) Lung nodule Priority: Primary Status: Chronic (3) Hypertension Priority: Secondary Status: Acute Qualifiers: Hypertension type: essential hypertension Qualified Code(s): I10 - Essential (primary) hypertension (4) Mood disorder Priority: Secondary Status: Chronic (5) COPD (chronic obstructive pulmonary disease) Priority: Secondary Status: Chronic Qualifiers: COPD type: unspecified COPD Qualified Code(s): J44.9 - Chronic obstructive pulmonary disease, unspecified Hospital course: Patient is a 67-year-old male with past medical history significant for smoking , COPD, and a lung nodule who presented to the ER on 03/03/18 due to right pneumothorax. Patient underwent lung nodule biopsy by interventional radiology the day of admission and was found to have a small pneumothorax on chest x-ray after the procedure and chest tube was placed by IR. Patient was admitted to the hospital service and during hospital stay, his chest pain and shortness of breath improved. Chest tube was removed by IR and repeat chest x-ray showed stable small right apical pneumothorax. Patient will be discharged to follow-up with primary care provider. - Time Spent with Patient Total time spent providing and/or coordinating discharge services: Less than 30 minutes - Discharge Medications Home Medications: Albuterol Sulfate [Albuterol Inhaler] 2 puff IH Q4HR PRN 03/04/18 [History] Amlodipine Besylate 7.5 mg PO DAILY 03/04/18 [History] Budesonide/Formoterol 160/4.5 [Symbicort 160/4.5] 2 puff IH BIDR 03/04/18 [ History] Docusate [Colace] 100 mg PO DAILY PRN 03/04/18 [History] Doxycycline Monohydrate [Mondoxyne Nl] 100 mg PO BID 03/04/18 [History] Escitalopram [Lexapro] 10 mg PO DAILY 03/04/18 [History] Ferrous Gluconate 324 mg PO TID 03/04/18 [History] Fluticasone Propionate Nasal [Flonase] 2 spr NS DAILY PRN 03/04/18 [History] Ipratropium/Albuterol Neb [Duoneb] 3 ml IH Q6HR PRN 03/04/18 [History] Mirtazapine [Remeron] 30 mg PO HS 03/04/18 [History] Multivitamin [Multivitamins] 1 cap PO DAILY 03/04/18 [History] Nicotine Polacrilex [Nicotine Gum] 4 mg BC Q4H 03/04/18 [History] Pantoprazole Sodium [Protonix] 40 mg PO BID 03/04/18 [History] Prazosin HCl [Minipress] 2 mg PO HS 03/04/18 [History] Sildenafil Citrate [Viagra] 50 mg PO ONCE PRN 03/04/18 [History] hydroCHLOROthiazide [Hydrochlorothiazide] 25 mg PO DAILY 03/04/18 [History] Allergies/Adverse Reactions: 3 Allergy/AdvReac Type Severity Reaction Status Date / Time acetaminophen [From Tylenol] Allergy Hives Verified 03/04/18 13:56 hydrocodone [From Vicodin] Allergy Hives Verified 03/04/18 13:56 lorazepam [From Ativan] Allergy Hives Verified 03/04/18 13:56 Oxycodone [From Percocet] Allergy Hives Verified 03/04/18 13:56 atenolol AdvReac Gastrointestinal Verified 03/04/18 13:56 Upset bisacodyl AdvReac Gastrointestinal Verified 03/04/18 13:56 Upset Date of admission: 03/03/18 17:22 [facility] care physician: [facility] Consults: 03/04/18 08:05 Consult to Pulmonology [CONS] Routine Consulting Provider: [facility] Reason for Consult: Right pneumothorax Time Notified: 08:30 Call Completed: Yes - Constitutional Vitals: Temp Pulse Resp BP Pulse Ox 97.9 F 91 17 102/68 98 03/05/18 11:22 03/05/18 11:22 03/05/18 11:22 03/05/18 11:22 03/05/18 11:22 General appearance: Present: A&O X 3, no acute distress - Respiratory Respiratory exam: Present: CTAB. Absent: accessory muscle use, rales, rhonchi, wheezes - Patient Status Disposition: Home, Self-Care - Discharge Instructions Follow Up With: NONE,PCP [Non-Partnered Physician] -
--- NOTE | 2018-03-07 10:21 | Electrocardiograph Report ---
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
== END 2018-03-05 14:19 | disposition home or self-care (01) ==
LOC: RAD 09:06 → 2ANU 09:06 → SUATTDRO 17:22
PROVIDERS: ADMIT Student in an Organized Health Care Education/Training Program; ATTEND Hospitalist

== ENCOUNTER 2020-11-26 12:56 | Observation (INO) ==
[2020-11-26 13:16] LABS: Hematocrit 44.9 % (37.5-50.1); Hemoglobin 15.5 g/dL (12.9-16.9); Mean Corpuscular HGB Conc 34.5 g/dL (31.6-35.5); Mean Corpuscular Hemoglobin 32.3 pg (28.0-33.3); Mean Corpuscular Volume 93.5 fL (83.0-100.0); Mean Platelet Volume 10.3 fL (9.4-12.4); Platelet Count 316 K/mcL (140-400); Red Cell Distribution Width 14.1 % (11.5-14.5); White Blood Count 7.9 K/mcL (4.3-11.1)
[2020-11-26] MEDS ORDERED: Isovue-370 500 ML BOTTLE IVP ONE (13:30)
[2020-11-26 13:32] LABS: BUN/Creatinine Ratio 13 (6-26); Blood Urea Nitrogen 14 mg/dL (8-23); Calcium 9.3 mg/dL (8.6-10.3); Carbon Dioxide 24 mEq/L (23-29); Chloride 107 mEq/L (98-107); Glucose 106 mg/dL (70-105); Osmolality,Calculated 289 (280-300); Potassium 3.8 mEq/L (3.5-5.1); Sodium 139 mEq/L (136-145); eGFR For African Americans > 60 (> 60); eGFR For Non-African Americans > 60 (> 60)
[2020-11-26 13:34] LABS: Troponin I < 0.03 ng/mL (< 0.04)
[2020-11-26 13:37] LABS: INR 1.1; Prothrombin Time 12.3 Seconds (9.4-12.1)
[2020-11-26 13:40] LABS: Activated Partial Thrombo Time 27.1 Seconds (26.0-36.0)
[2020-11-26] MEDS ORDERED: Perflutren Lipid Microsphere 1.3 ML in 0.9 % Sodium Chloride 8.7 ML IVP PRN (16:17)
[2020-11-26] MEDS ORDERED: Naloxone 0.4 MG/ML INJ IVP PRN (16:24)
[2020-11-26] MEDS ORDERED: Fluticasone Propionate Nasal 50 MCG/SPRAY BOTTLE NS PRN (16:28)
[2020-11-26] MEDS ORDERED: Aspirin Enteric Coated 81 MG Tablet PO SCH (16:30)
[2020-11-26] MEDS ORDERED: Aspirin 325 MG TABLET PO ONE (18:00)
[2020-11-26 18:45] LABS: Amphetamine Screen,Urine Positive ng/mL (Cutoff=1000); Barbiturate Screen,Urine Negative ng/mL (Cutoff=200); Benzodiazepines Screen,Urine Negative ng/mL (Cutoff=200); Cannabinoid Screen,Urine Negative ng/mL (Cutoff = 50); Cocaine Screen,Urine Negative ng/mL (Cutoff= 300); Opiate Screen,Urine Negative ng/mL (Cutoff=300); Phencyclidine Screen,Urine Negative ng/mL (Cutoff=25)
[2020-11-26] MEDS: hydrOXYzine pamoate 25 MG CAPSULE PO SCH (21:04)
[2020-11-26] MEDS: lamoTRIgine 25 MG TABLET PO SCH (21:06)
[2020-11-26] MEDS: Mirtazapine 15 MG TABLET PO SCH (21:06)
[2020-11-27 07:08] LABS: Hematocrit 44.4 % (37.5-50.1); Hemoglobin 14.8 g/dL (12.9-16.9); Mean Corpuscular HGB Conc 33.3 g/dL (31.6-35.5); Mean Corpuscular Hemoglobin 31.7 pg (28.0-33.3); Mean Corpuscular Volume 95.1 fL (83.0-100.0); Mean Platelet Volume 10.9 fL (9.4-12.4); Platelet Count 314 K/mcL (140-400); Red Blood Count 4.67 M/mcL (4.19-5.50); Red Cell Distribution Width 14.5 % (11.5-14.5); White Blood Count 7.2 K/mcL (4.3-11.1)
[2020-11-27 07:33] LABS: Alanine Aminotransferase 86 Units/L (7-52); Albumin 3.5 g/dL (3.5-5.7); Albumin/Globulin Ratio 1.3 (1.1-2.2); Alkaline Phosphatase 91 Units/L (34-104); Aspartate Amino Transferase 72 Units/L (13-39); BUN/Creatinine Ratio 12 (6-26); Bilirubin,Total 0.7 mg/dL (0.3-1.0); Blood Urea Nitrogen 11 mg/dL (8-23); Calcium 9.1 mg/dL (8.6-10.3); Carbon Dioxide 24 mEq/L (23-29); Chloride 107 mEq/L (98-107); Chol/HDL Ratio 4.2 (0-4.9); Cholesterol 143 mg/dL (< 200); Globulin 2.6 g/dL (2.4-3.5); Glucose 98 mg/dL (70-105); HDL Cholesterol 34 mg/dL (40-59); LDL Cholesterol,Calculated 96 mg/dL (< 100); Osmolality,Calculated 289 (280-300); Potassium 3.6 mEq/L (3.5-5.1); Sodium 140 mEq/L (136-145); Total Protein 6.1 g/dL (6.4-8.9); Triglycerides 64 mg/dL (< 150); eGFR For African Americans > 60 (> 60); eGFR For Non-African Americans > 60 (> 60)
[2020-11-27] MEDS: Multivit/Ca/Min/Fe/FA 1 TAB TABLET PO SCH (09:00)
[2020-11-27] MEDS: lamoTRIgine 25 MG TABLET PO SCH ×2 (09:00→20:25)
[2020-11-27] MEDS: Aspirin Enteric Coated 81 MG Tablet PO SCH (09:00)
[2020-11-27] MEDS: hydrOXYzine pamoate 25 MG CAPSULE PO SCH ×2 (09:00→20:25)
[2020-11-27 12:05] LABS: Estimated Average Glucose 123 mg/dl; Hemoglobin A1C 5.9 %
[2020-11-27 13:43] LABS: Influenza A PCR Negative (Negative); Influenza B PCR Negative (Negative); Resp. Syncytial Virus PCR Negative (Negative); SARS-CoV-2 by PCR (In House) Negative (Negative)
[2020-11-27] MEDS: Mirtazapine 15 MG TABLET PO SCH (20:25)
[2020-11-28] MEDS ORDERED: Melatonin 3 MG TABLET PO PRN (00:48)
[2020-11-28] MEDS: lamoTRIgine 25 MG TABLET PO SCH ×2 (09:44→20:22)
[2020-11-28] MEDS: hydrOXYzine pamoate 25 MG CAPSULE PO SCH ×2 (09:44→20:22)
[2020-11-28] MEDS: Multivit/Ca/Min/Fe/FA 1 TAB TABLET PO SCH (09:44)
[2020-11-28] MEDS: Aspirin Enteric Coated 81 MG Tablet PO SCH (09:44)
[2020-11-28] MEDS ORDERED: Ipratropium/Albuterol Neb 3 ML IH PRN (14:59)
[2020-11-28] MEDS: amLODIPine 5 MG TABLET PO SCH (15:32)
[2020-11-28] MEDS: hydroCHLOROthiazide 25 MG TABLET PO SCH (15:32)
[2020-11-28] MEDS: Mirtazapine 15 MG TABLET PO SCH (20:22)
[2020-11-28] MEDS: Budesonide/Formoterol 160/4.5 1 PUFF INH IH SCH (22:23)
[2020-11-29] MEDS: Budesonide/Formoterol 160/4.5 1 PUFF INH IH SCH ×2 (08:12→19:55)
[2020-11-29] MEDS: Multivit/Ca/Min/Fe/FA 1 TAB TABLET PO SCH (09:40)
[2020-11-29] MEDS: hydroCHLOROthiazide 25 MG TABLET PO SCH (09:40)
[2020-11-29] MEDS: Aspirin Enteric Coated 81 MG Tablet PO SCH (09:40)
[2020-11-29] MEDS: amLODIPine 5 MG TABLET PO SCH (09:40)
[2020-11-29] MEDS: lamoTRIgine 25 MG TABLET PO SCH ×2 (09:40→20:42)
[2020-11-29] MEDS: hydrOXYzine pamoate 25 MG CAPSULE PO SCH ×2 (09:41→20:43)
[2020-11-29] MEDS ORDERED: Carbamide Peroxide 150 DROP/15 ML BOTTLE RIGHT EAR ONE (14:14)
[2020-11-29] MEDS: Mirtazapine 15 MG TABLET PO SCH (20:43)
[2020-11-30] MEDS: hydroCHLOROthiazide 25 MG TABLET PO SCH (08:28)
[2020-11-30] MEDS: Aspirin Enteric Coated 81 MG Tablet PO SCH (08:29)
[2020-11-30] MEDS: lamoTRIgine 25 MG TABLET PO SCH (08:29)
[2020-11-30] MEDS: amLODIPine 5 MG TABLET PO SCH (08:29)
[2020-11-30] MEDS: hydrOXYzine pamoate 25 MG CAPSULE PO SCH (08:29)
[2020-11-30] MEDS: Multivit/Ca/Min/Fe/FA 1 TAB TABLET PO SCH (08:30)
[2020-11-30] MEDS: Budesonide/Formoterol 160/4.5 1 PUFF INH IH SCH (10:54)
[2020-11-30 10:56] VITALS: BP 115/66
== END 2020-11-30 16:16 | disposition home or self-care (01) ==
LOC: 3BNU 12:56 → EMEROOARM 12:56 → SUATTDRO 17:25 → 3BNU 19:03
PROVIDERS: ADMIT Internal Medicine; ATTEND Internal Medicine